=== PATIENT | male | born 1980 | race Caucasian/White ===

== ENCOUNTER → 2021-05-21 08:02 | Outpatient (CLI) | payer OTHER, SELFPAY ==
--- NOTE | 2021-05-21 08:23 | DI.CT.S_ITS ---
PROCEDURE: CT ABDOMEN PELVIS WO/W CON INDICATIONS: Gross hematuria TECHNIQUE: Optional 5 mm thick noncontrast images acquired from the diaphragm to the symphysis pubis. After the administration of intravenous contrast, 5 mm thick images acquired from the diaphragm to the symphysis pubis after a 10-minute delay. 2 mm thick coronal and sagittal reformats were then performed of the kidneys and ureters. For radiation dose reduction, the following was used: automated exposure control, adjustment of mA and/or kV according to patient size. COMPARISON: [facility], CT, CT KUB, 10/19/2020, 14:32. FINDINGS: Image quality: Excellent. Lung bases: Lung bases are clear. Heart size is normal. Urinary system: Both kidneys are normal in size, without hydronephrosis or nephrolithiasis on pre-contrast images. No perinephric fat stranding. There is normal bilateral renal enhancement. Renal calyces appear normal in morphology when filled with contrast. Opacified portions of both ureters demonstrate normal caliber. Bladder wall thickness is normal. No calcified bladder stones. Other solid organs: Liver is normal in size and enhancement. There is a vague hyperdensity adjacent to the gallbladder which was present on the previous study, and is in the liver, and not focal gallbladder wall thickening. It likely represents focal fatty sparing in the liver. There is mild diffuse hepatic steatosis. Gallbladder is contracted. There are vague potential stones present in the gallbladder. Biliary system is non x2mapxpr. Pancreas enhances normally. Spleen is normal in size and enhancement. No adrenal nodules. Peritoneum and bowel: Bowel loops demonstrate normal wall thickness and caliber. No free fluid or air. Nodes and vessels: No retroperitoneal or mesenteric adenopathy by size criteria. Aorta and inferior vena cava are normal in size. Abdominal wall: No ventral hernias. Pelvis: No pathologic free pelvic fluid. No inguinal hernias or adenopathy. Bones: No suspicious bony lesions. No vertebral body compression fractures. IMPRESSION: 1. No renal stone, hydronephrosis, ureteral stone, or findings suspicious for malignancy. 2. Mild diffuse hepatic steatosis. 3. Probable cholelithiasis. Dictated by: Pollo Brunson M.D. on 05/21/2021 at 8:48 Approved by: Pollo Brunson M.D. on 05/21/2021 at 8:55
== END ==
PROVIDERS: PCP Family Medicine; Referring Provider Urology; Visit Provider Urology
DX: R31.0 Gross hematuria (principal); N20.0 Calculus of kidney; R10.9 Unspecified abdominal pain; K76.0 Fatty (change of) liver, not elsewhere classified
CPT/HCPCS: 74178; Q9967

== ENCOUNTER → 2021-06-10 12:20 | Outpatient (CLI) | payer OTHER, SELFPAY ==
--- NOTE | 2021-06-10 12:21 | DI.US.S_ITS ---
PROCEDURE: US ABDOMEN LIMITED INDICATIONS: RUQ/RIGHT FLANK PAIN TECHNIQUE: Real-time scanning was performed of the abdominal and retroperitoneal organs, with image documentation. COMPARISON: [facility], CT, CT KUB, 10/19/2020, 14:32. FINDINGS: Liver: Increased echogenicity, compatible with hepatic steatosis. Hypoechoic area adjacent to the gallbladder fossa, measuring up to 1.4 cm, which may reflect focal fatty sparing. Gallbladder: No gallbladder wall thickening, pericholecystic fluid, or sonographic Aguirre sign. 2-3 polyps are seen, measuring up to 1.2 cm. Biliary ducts: Intrahepatic bile ducts are non-dilated. Extrahepatic bile duct caliber measures 7.2 mm. Normal is 6-7 mm or less in diameter, or 10 mm or less post-cholecystectomy. Pancreas: Obscured by bowel gas. Right kidney: Normal in size and echotexture. Right kidney measures 13.1 cm long. No hydronephrosis or solid mass. Nephrolithiasis, measuring up to 8.1 mm. Miscellaneous: No free abdominal fluid. IMPRESSION: 1. Gallbladder polyps measuring up to 1.2 cm. Consider surgical consultation. Dictated by: Rodolfo Zee M.D. on 06/10/2021 at 13:14 Approved by: Rodolfo Zee M.D. on 06/10/2021 at 13:19
== END ==
PROVIDERS: PCP Family Medicine; Referring Provider Surgery; Visit Provider Surgery
DX: K82.4 Cholesterolosis of gallbladder; R10.11 Right upper quadrant pain
CPT/HCPCS: 76705

== ENCOUNTER 2021-06-15 08:07 | Emergency (ER) | payer OTHER, SELFPAY ==
[2021-06-15 08:13] VITALS: BP 168/105; PULSE 105; RESP 14; TEMP 36.9; O2SAT 98; BMI 26.0
--- NOTE | 2021-06-15 08:25 | ED.GENADULT ---
HPI - General Adult General Chief complaint: Urogenital-Male Stated complaint: Hematuria, flank pain Time Seen by Provider: 06/15/21 08:25 Source: patient Mode of arrival: Ambulatory History of Present Illness HPI narrative: 40-year-old gentleman with a history of known kidney stones with distant history of, passing multiple stones and recent passing of gravel followed by Dr. Alegria urology. For the last 6 months he has had chronic intermittent right flank to right lower quadrant pain. CT scan on May 21 shows bilateral nonobstructing renal stones 2 on the right, 3 on the left, no ureteral stones no hydronephrosis. Probable cholelithiasis. Patient is on Flomax. He manages his pain symptomaticly and typically takes no medications. Approximately 2 weeks ago he noticed some sand like debris in his urine. Last night he began noticing gross hematuria and had a slight increase in his chronic right lower quadrant pain radiating and down through the inguinal canal into the right testicle. This morning his pain is significantly improved. He is post appendectomy. He describes no fever, cough, chills he is not vomiting he is not having diarrhea. He describes no overt dysuria Related Data Home Medications Medication Instructions Recorded Confirmed amlodipine 10 mg tablet 10 mg PO DAILY 05/19/21 06/01/21 aspirin 81 mg tablet,delayed 81 mg PO DAILY 05/19/21 06/01/21 release chlorthalidone 50 mg tablet 50 mg PO DAILY 05/19/21 06/01/21 potassium chloride 20 mEq 20 meq PO DAILY 05/19/21 06/01/21 tablet,extended release pravastatin 20 mg tablet 20 mg PO DAILY 06/01/21 06/01/21 Previous Rx's Medication Instructions Recorded tamsulosin 0.4 mg capsule 0.8 mg PO DAILY #60 cap 05/19/21 Allergies Allergy/AdvReac Type Severity Reaction Status Date / Time Penicillins Allergy Verified 06/15/21 08:18 Review of Systems Review of Systems Narrative: Remainder of complete review of systems is otherwise unremarkable except for that included in the HPI. 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 Able to give a complete and coherent history. Well-nourished well-developed HEENT: Moist mucous membranes, normal sclera with reactive pupils, Neck: No JVD, supple Respiratory: Lungs are clear to auscultation, no wheezing no rales no rhonchi. Full and symmetrical air movement Cardiac: Regular rate and rhythm no murmurs no bruits Abdomen: Soft, mild flank with very mild right lower quadrant tenderness with deep palpation with no rebound or guarding. Skin: Warm and dry, no rashes Neurologic: Grossly neurologically intact with no obvious asymmetries or abnormalities Extremities: No trauma, well perfused Psych: Cooperative, appropriate insight and affect Initial Vital Signs Initial Vital Signs: Vital Signs Temperature 98.5 F 06/15/21 08:13 Pulse Rate 105 H 06/15/21 08:13 Respiratory Rate 14 06/15/21 08:13 Blood Pressure 168/105 H 06/15/21 08:13 Pulse Oximetry 98 06/15/21 08:13 Course Orders Ordered: ED Orders 06/15/21 08:21 Urine Microscopic Stat Vital Signs Vital signs: Vital Signs - 8 hr 06/15/21 08:13 Temperature 98.5 F Pulse Rate 105 H Respiratory Rate 14 Blood Pressure 168/105 H Pulse Oximetry 98 Medical Decision Making Lab Data Labs: Urine Dip Bedside Urine Glucose Negative Bedside Urine Bilirubin - Negative Bedside Urine Ketone - Negative Urine Specific [place] 1.015 Bedside Urine Occult Blood +++ Bedside Urine pH 7.5 Bedside Urine Protein - Negative Bedside Urine Urobilinogen - Negative Bedside Urine Nitrite - Negative Bedside Urine Leukocytes - Negative Esterase Point of care testing: Urine Dip Bedside Urine Glucose Negative Bedside Urine Bilirubin - Negative Bedside Urine Ketone - Negative Urine Specific [place] 1.015 Bedside Urine Occult Blood +++ Bedside Urine pH 7.5 Bedside Urine Protein - Negative Bedside Urine Urobilinogen - Negative Bedside Urine Nitrite - Negative Bedside Urine Leukocytes - Negative Esterase MDM Narrative Medical decision making narrative: 40-year-old gentleman with a history of multiple kidney stones seen by Urology. Hematuria noted today with positive red cells and no other findings on urinalysis today. Bedside ultrasound shows no hydronephrosis and symptoms have significantly abated this morning. Given recent CT scanning, current Flomax prescription, no evidence of a urinary tract infection, no suggestion of bowel obstruction or intra-abdominal abscess at this point I would continue to treat with conservative management and have him follow-up with his urologist. At some point there had been a discussion of surgical referral for consideration of pain related to cholelithiasis. At this point he has absolutely no right upper quadrant tenderness. Possibility of pancreatitis have been entertained and again no left upper quadrant tenderness at all. At this point with no evidence of dissection, hydronephrosis, the hematuria clearing and pain minimal I do not think additional workup is required and patient will be discharged home. Discharge Plan Departure Patient Disposition: Home Clinical Impression: Kidney stones, Gross hematuria Instructions: DI for Kidney Stones Activity Restrictions/Additional Instructions: Thank you for coming in today Your urine shows only blood with no suggestion of any type of infection. Bedside ultrasound does not show dilated ureter or significantly dilated kidney. You do not have your appendix so we do not need to worry about appendicitis. Without a fever a and with symptoms improved this morning I do not think that we need to do any advanced imaging or lab work at this time. Please do continue her Flomax. Ibuprofen may be helpful for pain if you choose to take this. Please follow-up with Dr. Alegria. I wish you the best Prescriptions: No Action pravastatin 20 mg tablet 20 mg PO DAILY 0RF aspirin 81 mg tablet,delayed release (DR/EC) 81 mg PO DAILY 0RF amlodipine 10 mg tablet 10 mg PO DAILY 0RF potassium chloride 20 mEq tablet extended release 20 meq PO DAILY 0RF chlorthalidone 50 mg tablet 50 mg PO DAILY 0RF tamsulosin 0.4 mg capsule 0.8 mg PO DAILY Qty: 60 12RF Referrals: Clifton Truong MD [Primary Care Provider] -
[2021-06-15 08:58] LABS: Amorphous Sediment Urine 1+; Bacteria Urine Moderate (10-30); Culture Indicated Urine Cult Not Indicated; RBC Urine >100/HPF (0-5/HPF); WBC Urine None Seen (0-5/HPF)
== END 2021-06-15 09:14 | disposition home or self-care (01) ==
PROVIDERS: Emergency Provider Emergency Medicine; PCP Family Medicine; Referring Provider Urology
DX: N20.0 Calculus of kidney (principal); R31.9 Hematuria, unspecified
CPT/HCPCS: 81003; 81015; 99281; 99282

== ENCOUNTER → 2021-06-23 08:00 | Outpatient (CLI) | payer OTHER, SELFPAY ==
--- NOTE | 2021-06-23 08:01 | DI.RAD.S_ITS ---
PROCEDURE: XR KUB INDICATIONS: Renal calculi TECHNIQUE: One view of the abdomen acquired. COMPARISON: [facility], CT, CT ABDOMEN PELVIS WO/W CON, 05/21/2021, 8:12. FINDINGS: Surgical changes and devices: None. Bowel: Bowel gas pattern is normal. Soft tissues: Numerous bilateral renal stones are noted ranging in size from 2-7 millimeters. 3 millimeter calcific density projects over the expected course of the proximal right ureter at the level of the right L3 transverse process. Visualized solid organ contours appear normal in size. Bones: No suspicious bony lesions. IMPRESSION: Possible 3 millimeter right ureteral stone. Multiple bilateral renal stones. Dictated by: Yanely Haney MD, PhD on 06/23/2021 at 13:14 Approved by: Yanely Haney MD, PhD on 06/23/2021 at 13:16
== END ==
PROVIDERS: PCP Family Medicine; Referring Provider Urology; Visit Provider Urology
DX: N20.0 Calculus of kidney (principal); K82.4 Cholesterolosis of gallbladder; R10.31 Right lower quadrant pain; M54.6 Pain in thoracic spine
CPT/HCPCS: 74018; 81002; 96372; 99215; J1885

== ENCOUNTER 2021-07-09 12:14 | Day surgery (SDC) | payer OTHER, SELFPAY ==
[2021-07-06 07:50] VITALS: BMI 26.7
[2021-07-09] VITALS (8 sets, daily range): BP systolic 120–151; BP diastolic 70–88; PULSE 59–79; RESP 16–18; TEMP 36.4–37.5; O2SAT 94–100; BMI 26.0
[2021-07-09] MEDS: LACTATED RINGERS 1,000 ML 42 ML IV (12:47)
[2021-07-09] MEDS: CIPROFLOXACIN 400 MG/200 ML PIGGYBACK 200 MG IV (12:49)
--- NOTE | 2021-07-09 13:08 | PM.PREOP ---
Pre-operative Note COVID-19 COVID-19 status: Negative Result date/Date tested (Pos, Neg/Pending): 07/07/21 Criteria for continued procedure: Continuing or worsening of significant or severe pain, Delay expected to result in less-positive ultimate med/surg outcome and Non-surgical alternatives not available or appropriate per current SOC Interval Note History & Physical reviewed/Exam performed by Physician: Yes Changes to H&P: No
--- NOTE | 2021-07-09 13:52 | SUR.OPER ---
Supine on padded EWSL table, head on pillow, arms padded at sides with gel pads and rolled towels placed under bilateral wrists, legs uncrossed, gel pad under bilateral heels. Patient was first in lithotomy position using ESWL bed padded stirrups then to supine position.
--- NOTE | 2021-07-09 14:23 | P.OP_ITS ---
Procedure & Clinicians Procedure: Right extracorporeal shockwave lithotripsy, bilateral ureteral stent placement Same procedure as scheduled: Yes Indications: This is a 40-year-old male who has bilateral urinary calculi. He has suffered from renal colic bilaterally but particularly on the right side. The stone in the right ureter has refused to pass and the patient presents at this time for the above procedure. He has been unable to function at home or at work because of the stones. Surgeon: Mian Alegria Click Yes if Unassisted: Yes Anesthesia Type: General Operative Notes Findings: Patient was found to have the 2 stones on the right 1 in the proximal 3rd of the ureter 1 in the upper pole of the right kidney. He appeared to have 3 stones on the left. The 7 [place]ian multi length stents were left in good position right and left collecting system without a string. The stones appeared to fragment well the ureteral stone was treated with 750 shocks at level 8 and the upper pole right calculus was treated with the remainder of the shocks going to 1000 total shocks. The upper pole stone was treated at level 6. Both stones appeared to fragment well. At cystoscopy the urethra was normal along its length prostate exhibited minimal obstructive character. Ureteral orifices were normal position with clear efflux. The bladder mucosa was normal. There were no papillary lesions or stones within the bladder. Closure Type: not applicable Specimen(s): none sent Prosthetic devices, grafts, tissues, transplants, or devices: Ureteral stents right and left 7 [place]ian multi length no string Procedure in detail: After informed consent was obtained, the patient was identified, and taken to the operating room. The patient was then placed in the supine position on the lithotriptor where anesthesia was induced and maintained. With an adequate level of anesthesia the patient was transitioned to the lithotomy position. The patient was then prepped, draped, prepared for transurethral procedure. After prepping, draping and ensuring an adequate level of anesthesia a 22 Lithuanian cystoscope was passed through the urethra prostate into the bladder where cystoscopy was performed. The right ureteral orifice was identified and a guidewire was passed up and into the collecting system under fluoroscopic visualization. The stent was then passed over the wire in position in the renal pelvis under fluoroscopic visualization, in the bladder under direct vision. With the stent in good position the wire was removed and the stent was left in place. The nylon hardness of the stent was then removed. The scope was reinserted and the left ureteral orifice was identified guidewire was passed up and into the collecting system and the stent passed over the wire position in the renal pelvis under fluoroscopic visualization in the bladder under direct vision. Again the nylon string was removed the stent was left in good position. The patient's bladder was then drained the cystoscope removed and the patient returned to the supine position on Lithotripter. The patient then had the ureteral stone targeted via the fluoroscopic being targeting system and was t reated with shock waves to a total of 750 total shocks. At this point the stone appeared well fragmented. The upper pole renal calculus right side was then targeted and shock waves delivered to reach the total of 1000 total shocks. At this point the shockwave head was rotated out and again fluoroscopy performed the stones appeared to be well fragmented of and in a fashion they were ?dust clouds ?. With that being true the patient was awakened, taken to the postanesthesia care unit having tolerated the procedure well patient to be discharged home to follow-up in my office in approximately 10 days with a KUB. There were no complications. Complications: none Post-operative Condition: stable Disposition: PACU Plan for aftercare: Patient to be discharged to home, to follow up my office in approximately 10 days with a KUB.
[2021-07-09] MEDS: PHENAZOPYRIDINE 100 MG TABLET 200 MG PO (15:11)
[2021-07-09] MEDS: HYDROCODONE/ACET 5/325 TABLET 1 TAB PO (15:11)
--- NOTE | 2021-07-09 15:43 | SUR.PHASEII ---
1535-Pt A&O, denies nausea, taking po fluids without problems, gave Pyridium 200mg and Vicodin po earlier for pain to lower left back. Pt up and ambulating gait steady, to br voiding well without problems, urine strained but no tissue found. 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 Pt states pain tolerable . Dcd in stable condition via [place] to friend at [facility] in private vehicle
== END 2021-07-09 15:35 | disposition home or self-care (01) ==
PROVIDERS: PCP Family Medicine; Referring Provider Urology; Visit Provider Urology
PROC: (CPT 50590; principal; 2021-07-09 13:30)
DX: N20.1 Calculus of ureter (principal); N20.0 Calculus of kidney
CPT/HCPCS: 50590; 52332; J0744; J2250; J2405; J2704; J3010

== ENCOUNTER → 2021-07-23 08:22 | Outpatient (CLI) | payer OTHER, SELFPAY ==
--- NOTE | 2021-07-23 08:24 | DI.RAD.S_ITS ---
PROCEDURE: XR KUB INDICATIONS: Renal calculi TECHNIQUE: One view of the abdomen acquired. COMPARISON: [facility], CR, XR KUB, 06/23/2021, 7:55. FINDINGS: Surgical changes and devices: Bilateral ureteral stents noted. Bowel: Bowel gas pattern is normal. Soft tissues: Stippled bilateral renal calcification again noted, similar prior exam. There are 2 separate calcifications noted at the right ureteropelvic junction projecting between the L2 and L3 spinous processes, new from the prior exam. Bones: No suspicious bony lesions. IMPRESSION: 1. Right proximal ureteral calculi, new from the prior exam, project between the L2 and L3 spinous processes. 2. Bilateral renal stents in place. 3. Bilateral renal calculi Approved by: Boom Byrne M.D. on 07/23/2021 at 15:06
== END ==
PROVIDERS: PCP Family Medicine; Referring Provider Urology; Visit Provider Urology
DX: N20.2 Calculus of kidney with calculus of ureter (principal); K82.4 Cholesterolosis of gallbladder; N39.0 Urinary tract infection, site not specified; R31.0 Gross hematuria; R30.0 Dysuria; R10.31 Right lower quadrant pain; Z96.0 Presence of urogenital implants
CPT/HCPCS: 74018; 81002; 82365; 87086

== ENCOUNTER → 2021-07-23 09:18 | Outpatient (CLI) | payer OTHER, SELFPAY ==
[2021-07-29 16:00] LABS: Hydroxyapatite 100 % (.); Size <1 mm (.)
== END ==
PROVIDERS: PCP Family Medicine; Visit Provider Urology
DX: N20.0 Calculus of kidney (principal); N39.0 Urinary tract infection, site not specified; Z96.0 Presence of urogenital implants
CPT/HCPCS: 82365; 87086

== ENCOUNTER → 2021-08-05 13:55 | Outpatient (CLI) | payer OTHER, SELFPAY ==
--- NOTE | 2021-08-05 13:57 | DI.RAD.S_ITS ---
PROCEDURE: XR KUB INDICATIONS: kidney stones TECHNIQUE: One view of the abdomen acquired. COMPARISON: [facility], CR, XR KUB, 07/23/2021, 8:39. FINDINGS: Surgical changes and devices: Double-J ureteral stents are redemonstrated. Bowel: Bowel gas pattern is normal. Soft tissues: 2 right renal calculi are visualized along the superior aspect of the double-J ureteral stent. These have slightly migrated inferiorly when compared with the prior study dated July 23, 2021 and are now projected over the right L4 transverse process. Left renal calculi are likely present, as before. Bones: No suspicious bony lesions. IMPRESSION: Slight inferior migration of the right ureteral calculi which are now projected over the right L4 transverse process. Dictated by: Deepti Girard M.D. on 08/05/2021 at 15:25 Approved by: Deepti Girard M.D. on 08/05/2021 at 15:26
== END ==
PROVIDERS: PCP Family Medicine; Referring Provider Urology; Visit Provider Urology
DX: N20.0 Calculus of kidney (principal); Z20.822 Contact with and (suspected) exposure to COVID-19
CPT/HCPCS: 74018; 82365; 87635

== ENCOUNTER → 2021-08-05 14:25 | Outpatient (CLI) | payer OTHER, SELFPAY ==
[2021-08-06 11:14] LABS: COVID19 -Nasal RAPID Negative (Negative)
[2021-08-11 16:07] LABS: Ca oxalate monohydr 20 % (.); Hydroxyapatite 80 % (.)
== END ==
PROVIDERS: PCP Family Medicine; Visit Provider Urology
DX: Z20.822 Contact with and (suspected) exposure to COVID-19 (principal); N20.0 Calculus of kidney
CPT/HCPCS: 82365; 87635

== ENCOUNTER 2021-08-06 10:30 | Day surgery (SDC) | payer OTHER, SELFPAY ==
[2021-08-04 11:35] VITALS: BMI 25.7
[2021-08-06 10:57] VITALS: BP 149/89; PULSE 83; RESP 16; TEMP 36.8; O2SAT 98; BMI 25.7
--- NOTE | 2021-08-06 11:33 | PM.PREOP ---
Pre-operative Note COVID-19 COVID-19 status: Negative Result date/Date tested (Pos, Neg/Pending): 08/06/21 Criteria for continued procedure: Continuing or worsening of significant or severe pain and Non-surgical alternatives not available or appropriate per current SOC Interval Note History & Physical reviewed/Exam performed by Physician: Yes Changes to H&P: No
--- NOTE | 2021-08-06 12:24 | SUR.OPER ---
Supine on ESWL bed, head on pillow, arms resting at sides padded at elbows and wrists, legs uncrossed,
[2021-08-06] MEDS: LACTATED RINGERS 500 ML 25 ML IV (12:42)
[2021-08-06] MEDS: LACTATED RINGERS 1,000 ML 42 ML IV (12:45)
[2021-08-06] MEDS: CIPROFLOXACIN 400 MG/200 ML PIGGYBACK 200 MG IV (12:51)
--- NOTE | 2021-08-06 13:21 | PM.OP.1 ---
Procedure & Clinicians Procedure: Left external for shockwave lithotripsy Same procedure as scheduled: Yes Indications: This is a pleasant 40-year-old male who presented with bilateral stones. He previously had undergone right extra for shockwave lithotripsy with bilateral stent placement. He presents today for left extracorporeal shockwave lithotripsy to continue treating his stones. Surgeon: Mian Alegria Click Yes if Unassisted: Yes Anesthesia Type: General Operative Notes Findings: Right ureteral stent is noted to be in good position. He does have a few fragments in the mid 3rd of his ureter which have failed to pass as yet but have been progressing. The left kidney as was noted on CT scan and at fluoroscopy today shows 2 stones. The left stent is in good position. The upper stone was treated with 500 shocks and appeared to fragment completely. The lower stone was treated with 250 shocks and appeared to fragment completely. There were no other abnormalities or observations noted. Closure Type: not applicable Specimen(s): none sent Estimated Blood Loss (mL): 0 Blood products transfused: none Procedure in detail: After informed consent was obtained, the patient was identified and brought to the operating room. Patient had anesthesia induced on the gurney and was maintained. Ensuring an adequate level of anesthesia the patient was transferred to the Lithotripter in the supine position and had the upper pole stone position and with the targeting element of the fluoroscopy. After time out, ensuring an adequate level of anesthesia had with the stone appropriately positioned with the targeting device shockwave delivered. This was done for a total 500 shocks which appeared to fragment the stone completely. The lower pole stone was then centered by the targeting device and shock waves delivered for a total 250 shocks at which time the stone appeared completely fragmented. The shockwave head was pulled out and fluoroscopy performed confirming that the stones appeared to be completely fragmented. At this point the procedure was stopped the patient was awakened, taken to the postanesthesia care unit having tolerated procedure well. The patient is to be discharged home to follow up my office in approximately 10 days with a KUB. Patient will be given a strainer and container to strain his urine and save any fragments that he catches. The patient tolerated procedure well and there were no complications. Complications: none Post-operative Condition: stable Disposition: PACU Plan for aftercare: Discharge to home follow-up my office in 10-14 days with a KUB.
[2021-08-06 13:26] VITALS: BP 102/62; PULSE 65; RESP 12; TEMP 36.6; O2SAT 95
[2021-08-06 13:31] VITALS: BP 102/67; PULSE 63; RESP 12; O2SAT 98
[2021-08-06 13:37] VITALS: BP 102/66; PULSE 62; RESP 11; O2SAT 98
[2021-08-06 13:51] VITALS: BP 104/68; PULSE 62; RESP 16; TEMP 36.3; O2SAT 99
[2021-08-06] MEDS: ACETAMINOPHEN 325 MG TABLET 975 MG PO (13:58)
[2021-08-06] MEDS: GABAPENTIN 300 MG CAPSULE PO (13:58)
--- NOTE | 2021-08-06 14:08 | SUR.PHASEI ---
Slow to wake, otherwise stable PACU stay. Medicated with gabapentin and acetamenophen per Dr. Batres.
[2021-08-06 14:15] VITALS: BP 118/77; PULSE 65; RESP 15; TEMP 36.6; O2SAT 98
--- NOTE | 2021-08-06 14:18 | SUR.PHASEII ---
discharge instructions reviewed with pt and he verbalized understanding.
== END 2021-08-06 14:32 | disposition home or self-care (01) ==
PROVIDERS: PCP Family Medicine; Referring Provider Urology; Visit Provider Urology
PROC: (CPT 50590; principal; 2021-08-06 12:00)
DX: N20.2 Calculus of kidney with calculus of ureter (principal); I10 Essential (primary) hypertension
CPT/HCPCS: 50590; J0744; J1100; J2250; J2405; J2704

== ENCOUNTER → 2021-08-20 08:49 | Outpatient (CLI) | payer OTHER, SELFPAY ==
--- NOTE | 2021-08-20 08:50 | DI.RAD.S_ITS ---
PROCEDURE: XR KUB INDICATIONS: Renal calculi TECHNIQUE: One view of the abdomen acquired. COMPARISON: [facility], , XR KUB, 08/05/2021, 14:03. FINDINGS: Surgical changes and devices: Double-J ureteral stents are redemonstrated. Bowel: Bowel gas pattern is normal. Soft tissues: As before, multiple calcifications are present adjacent to the superior aspect of the right ureteral stent essentially unchanged from the prior study dated August 05, 2021. No calcifications are visualized more distally adjacent to the ureteral stent. Bones: No suspicious bony lesions. IMPRESSION: Persistent right ureterolithiasis. Dictated by: Deepti Girard M.D. on 08/20/2021 at 9:26 Approved by: Deepti Girard M.D. on 08/20/2021 at 9:34
== END ==
PROVIDERS: PCP Family Medicine; Referring Provider Urology; Visit Provider Urology
DX: N20.1 Calculus of ureter (principal); R30.0 Dysuria; R10.9 Unspecified abdominal pain; Z96.0 Presence of urogenital implants
CPT/HCPCS: 74018; 81002; 82365; 87086

== ENCOUNTER → 2021-08-20 11:30 | Outpatient (CLI) | payer OTHER, SELFPAY ==
[2021-08-27 13:49] LABS: Ca oxalate monohydr 10 % (.); Hydroxyapatite 90 % (.); Size 6x3 mm (.)
== END ==
PROVIDERS: PCP Family Medicine; Visit Provider Urology
DX: N20.0 Calculus of kidney (principal); R30.0 Dysuria
CPT/HCPCS: 82365; 87086

== ENCOUNTER 2021-08-26 11:21 | Day surgery (SDC) | payer OTHER, SELFPAY ==
[2021-08-26] VITALS (7 sets, daily range): BP systolic 98–135; BP diastolic 7–87; PULSE 58–741; RESP 11–16; TEMP 36.2–36.8; O2SAT 95–98; BMI 25.7
--- NOTE | 2021-08-26 14:29 | PM.PREOP ---
Pre-operative Note COVID-19 COVID-19 status: Negative Result date/Date tested (Pos, Neg/Pending): 08/24/21 Criteria for continued procedure: Continuing or worsening of significant or severe pain and Delay expected to result in less-positive ultimate med/surg outcome Interval Note History & Physical reviewed/Exam performed by Physician: Yes Changes to H&P: No
--- NOTE | 2021-08-26 14:34 | SUR.OPER ---
Lithotomy on padded OR bed, head on pillow, arms secured on padded arm boards at <90 degrees abduction. Legs secured in padded yellow fins stirrups.
[2021-08-26] MEDS: CIPROFLOXACIN 400 MG/200 ML PIGGYBACK 200 MG IV (14:55)
--- NOTE | 2021-08-26 15:26 | SUR.OPER ---
Verified and Confirmed patient's PCR covid negative on 08/24/2020 via [employer] portal with FINANCIAL SALES REPRESENTATIVEANDERSON Wilson
[2021-08-26] MEDS: LACTATED RINGERS 1,000 ML 100 ML IV (15:44)
--- NOTE | 2021-08-26 16:07 | P.OP_ITS ---
Procedure & Clinicians Procedure: Cystoscopy with left stent removal, right stent removal with right ureteroscopy basket extraction of stone fragments and right stent placement Same procedure as scheduled: Yes Indications: This is a very pleasant gentleman who has had a rather complicated stone history with bilateral stones. His left-sided stones have been treated and her cleared and comes for stent removal. He had right-sided stones treated but there 3 fragments that have refused the past and thus he comes for stent removal right ureteroscopy with basket extraction of stones and right stent replacement. Surgeon: Mian Alegria Click Yes if Unassisted: Yes Anesthesia Type: General Operative Notes Findings: Urethra normal prostatic fossa which shows minimal to moderate obstructive character. The left stent is in normal position with minimal encrustation in his removed in its entirety. The left ureteral orifice appears normal the flux from the stent was normal. There are no mucosal lesions or abnormalities within the bladder. The right ureteral stent also was in normal position and with minimal encrustation. The stones were identified in the upper mid to distal upper 3rd of the ureter. There were 3 in number and they were all basketed out. Ureteroscopy after this revealed no further stones. The 7 Bangladeshi multi length stent was left in the right collecting system with no string. This was due to the fact that there was significant amount of edema and was felt that it would take time for this to resolve. The stent will be removed in my office in approximately 10 days. No other abnormalities were noted. Closure Type: not applicable Specimen(s): other Prosthetic devices, grafts, tissues, transplants, or devices: Three stone fragments Applied: other (7 Bangladeshi by multi length stent right collecting no string) Estimated Blood Loss (mL): 10 Procedure in detail: After informed consent was obtained, the patient was identified, brought to the operating room. Patient was placed in a supine position on the table where anesthesia was induced to maintain. With a adequate level of anesthesia the patient was transitioned to the lithotomy position where he was prepped, draped, prepared in a sterile fashion for transurethral procedure. After prepping draping and ensuring an adequate level of anesthesia a 21 Bangladeshi cystoscope was passed through the urethra prostate into the bladder under direct vision cystoscopy is performed findings were noted grasping forceps were inserted in the left stent was grasped and removed send tired this was confirmed by fluoroscopy. The right stent was then grasped of by its distal end brought to the meatus a guidewire was passed up and through the stent noon under fluoroscopic visualization confirmed to be within the renal pelvis. The stent was then backed out and this was reserved as a safety wire. Cystoscope was once again inserted and a 2nd guidewire passed up into the collecting system. This was the working wire. Cystoscope was backed out ureteral access sheath was passed up and into the ureter under direct fluoroscopic visualization. The ureteral scope was then passed up to the level of the 1st stone which was basket and brought out of. The scope was passed up and a 2nd smaller stone was then placed and the graft basket and then basketed out. The scope was then passed up again and of the 3rd stone grasped and removed. Ureteral access sheath was removed. The cystoscope was reinserted guidewire passed up and into the collecting system the ureteral scope passed over the wire and up and into the renal pelvis. Nephro ureteroscopy was then performed visualizing the ureter along its entire length no stones were noted. The ureter did exhibit some significant edema. Therefore the safety wire was backloaded through the cystoscope which was reinserted stent passed over the wire in a coaxial fashion position renal pelvis under fluoroscopic visualization the bladder under direct vision the nylon harness was removed and the stent left in good position. The bladder was drained, the patient was awakened having tolerated the procedure well patient to follow-up in my office after recovering in the postanesthesia care unit in approximately 10 days for stent removal. There were no complications Complications: none Post-operative Condition: stable Disposition: PACU Plan for aftercare: When fully awake and alert discharged from postanesthesia care unit follow-up my office in approximately 10 days for stent removal.
--- NOTE | 2021-08-26 16:13 | DI.RAD.S_ITS ---
PROCEDURE: XR ABDOMEN 1V INDICATIONS: RIGHT STONE/STENT FIX TECHNIQUE: One view of the abdomen acquired. COMPARISON: None. FINDINGS: Multiple intraoperative fluoroscopic views demonstrate placement of a double-J ureteral stent. IMPRESSION: Intraoperative fluoroscopic views of double-J ureteral stent placement. Dictated by: Deepti Girard M.D. on 08/26/2021 at 16:52 Approved by: Deepti Girard M.D. on 08/26/2021 at 16:53
[2021-08-26] MEDS: ACETAMINOPHEN 325 MG TABLET 650 MG PO (16:38)
[2021-08-26] MEDS: PHENAZOPYRIDINE 100 MG TABLET 200 MG PO (16:38)
[2021-08-26] MEDS: ONDANSETRON 4 MG/2 ML INJ IV (16:39)
== END 2021-08-26 17:09 | disposition home or self-care (01) ==
PROVIDERS: PCP Family Medicine; Referring Provider Urology; Visit Provider Urology
PROC: (CPT 52352; principal; 2021-08-26 13:15)
DX: N20.1 Calculus of ureter (principal); Z96.0 Presence of urogenital implants
CPT/HCPCS: 52352; 74018; 76000; C1771; J0744; J1100; J1885; J2405; J2704; J3010

== ENCOUNTER → 2021-09-06 15:37 | Outpatient (CLI) | payer OTHER, SELFPAY | PROVIDERS: PCP Family Medicine; Visit Provider Urology | DX: N20.2 Calculus of kidney with calculus of ureter (principal); R30.0 Dysuria; Z96.0 Presence of urogenital implants | CPT/HCPCS: 51798; 52310; 81002; 87086 ==

== ENCOUNTER → 2021-09-20 13:35 | Outpatient (CLI) | payer OTHER, SELFPAY ==
[2021-09-20 14:50] LABS: Appearance Urine UA CLEAR; Bilirubin Urine UA NEGATIVE (NEGATIVE); Color Urine UA YELLOW; Glucose Urine UA NEGATIVE (Negative); Ketones Urine UA NEGATIVE (NEGATIVE); Leukocyte Esterase Urine UA NEGATIVE (NEGATIVE); Nitrite Urine UA NEGATIVE (Negative); Occult Blood Urine UA NEGATIVE (Negative); Protein Urine UA NEGATIVE (Negative); Specific Gravity Urine UA <=1.005 (1.000-1.035); Urobilinogen Urine UA 0.2 E.U./dL (0.2)
[2021-09-20 14:55] LABS: Bacteria Urine None Seen; Culture Indicated Urine Cult Not Indicated; RBC Urine None Seen (0-5/HPF); WBC Urine None Seen (0-5/HPF)
[2021-09-20 15:30] LABS: COVID19 -Nasal RAPID Negative (Negative)
== END ==
PROVIDERS: Surgery; PCP Family Medicine; Referring Provider Urology; Visit Provider Urology
DX: Z01.812 Encounter for preprocedural laboratory examination (principal); Z20.822 Contact with and (suspected) exposure to COVID-19; R30.0 Dysuria
CPT/HCPCS: 81001; 87086; 87635; C9803

== ENCOUNTER 2021-09-21 07:47 | Day surgery (SDC) | payer OTHER, SELFPAY ==
[2021-08-24 12:10] VITALS: BMI 25.7
--- NOTE | 2021-09-21 | PATH_ITS ---
[facility] Accession Number: [id number] . 01 Material submitted: . gallbladder - GALLBLADDER . 02 Diagnosis: Gallbladder, Cholecystectomy: Chronic cholecystitis. Negative for dysplasia and neoplasia. No calculi identified. [facility] 09/24/2021 1702 Local . 02 Electronically signed: . Norah Rasheed MD, Pathologist NPI- [id number] . 01 Gross description: . The specimen is received in formalin, labeled gallbladder, and consists of a disrupted gallbladder measuring 6.7 x 3.0 x 3.0 cm, 0.2 cm average wall thickness. The hepatic bed is remarkable for a single transmural disruption (0.2 cm in length). The remaining hepatic bed is inked blue. The cystic duct (0.2 cm in diameter) and serosal surfaces are grossly unremarkable. The specimen is opened to reveal a moderate amount of viscous bile and bile-stained unremarkable mucosa. The specimen is representatively submitted as follows: . A1: Cystic duct margin en face, sales representative groceries sections of fundus, cystic neck and body. ([id number]) /[facility] 09/23/2021 1645 Local . 02 Pathologist provided ICD-10: K81.1 . 02 CPT . 020209 Specimen Comment: A courtesy copy of this report has been sent to [phone] Performed at: 01 [facility] [address] [id number] MD Everardo De La Rosa MD Phone: [phone] Performed at: 02 [facility] [address] [place], [place] [id number] MD Norah Rasheed MD Phone: [phone]
[2021-09-21 08:11] VITALS: BP 140/83; PULSE 87; RESP 16; TEMP 36.6; O2SAT 99
[2021-09-21 08:13] VITALS: BMI 26.1
[2021-09-21] MEDS: LACTATED RINGERS 1,000 ML 42 ML IV (08:34)
--- NOTE | 2021-09-21 09:31 | P.HP_ITS ---
History of Present Illness History of Present Illness Date Patient Seen: 09/21/21 Time Patient Seen: 09:31 Chief complaint: [facility] Narrative: Gen is here for his laparoscopic cholecystectomy. To review, he had an ultrasound few months back that showed gallbladder polyps the largest of which was about 1.5 cm. He has finally had all of his kidney stones treated and removed with combination of lithotripsy and stone extraction. He continues to have right upper quadrant pain on occasion. Patient History Medical History Abdominal pain Bilateral renal stones Bleeding disorder Cholesterolosis of gallbladder Dysuria Gross hematuria Hereditary hemochromatosis High blood pressure Hypokalemia Kidney stones LFT elevation Liver disease Mixed hyperlipidemia Pyuria Retained ureteral stent Right flank pain Surgical History (Updated 08/24/21 @ 12:16 by Regina Ashley RN) History of lithotripsy (07/09/21) History of liver biopsy History of renal stent Hx of lithotripsy (08/06/21) Family & Social History Family History Father BPH (benign prostatic hyperplasia) Hypertension Mother Migraines Hyperlipidemia Cancer Social History: household members spouse Tobacco & Substance use: Smoking Status Never smoker alcohol intake current alcohol intake frequency a few times a month Substance Use Type does not use Meds Home Medications and Allergies Home Medications Medication Instructions Recorded Confirmed Type amlodipine 10 mg tablet 10 mg PO DAILY 05/19/21 09/21/21 History pravastatin 20 mg tablet 20 mg PO DAILY 06/01/21 09/21/21 History tamsulosin 0.4 mg capsule 0.8 mg PO DAILY #180 cap 06/22/21 09/21/21 Rx aspirin 81 mg tablet,delayed 81 mg DAILY 09/21/21 09/21/21 History release ezetimibe 10 mg tablet 10 mg PO DAILY 09/21/21 09/21/21 History Allergies Allergy/AdvReac Type Severity Reaction Status Date / Time Penicillins Allergy Severe Anaphylaxis Verified 09/21/21 08:09 Exam Vital Signs (past 8 hours): - 09/21/21 08:11 Temperature 97.8 F Pulse Rate 87 Respiratory Rate 16 Blood Pressure 140/83 Pulse Oximetry 99 Oxygen Delivery Method Room Air Const General: healthy appearing Resp Effort & Inspection: normal respiratory effort GI Palpation: soft Assessment & Plan Assessment and plan (1) Gallbladder polyp: Status: Acute Plan We reviewed the findings of gallbladder polyps which could actually be represent a noncalcified gallstone. In any case we should remove his gallbladder as he is symptomatic and if it is a polyp it is larger than 1 cm. He understands the risks and benefits and would like to proceed. COVID-19 COVID-19 status: Negative Result date/Date tested (Pos, Neg/Pending): 09/20/21 Time Spent With Patient Critical Care time: I spent a total of [] minutes of critical care time on this patient's care today; this time is exclusive of procedural time.
[2021-09-21] MEDS: CLINDAMYCIN 900 MG/50 ML PIGGYBACK 50 MG IV (10:00)
--- NOTE | 2021-09-21 10:35 | SUR.OPER ---
Supine on padded OR bed, head on pillow, safety belt at thigh, left arm padded and tucked at side. Right arm secured on padded arm board <90 degrees abduction. Legs uncrossed. Padded footboard in place.
[2021-09-21] MEDS: LIDOCAINE 1% W/EPI 20 ML INJ (11:04)
[2021-09-21] MEDS: BUPIVACAINE 0.5% (PF) VIAL 30 ML INJ (11:08)
--- NOTE | 2021-09-21 11:20 | PM.OP.1 ---
Operative Date/Time/Diagnoses Date of procedure: 09/21/21 Time of procedure: 11:21 Pre-op diagnosis: Gallbladder polyps Post-op diagnosis: same Procedure & Clinicians Same procedure as scheduled: Yes Surgeon: Matthias Aldrich Operative Notes Procedure in detail: The patient was given preoperative antibiotic. The patient was brought to the operating room, placed on the table in the supine position. General endotracheal anesthesia was induced. The abdomen was prepped and draped. A time-out was performed. We made a 1 cm infraumbilical incision. We dissected down to the base of the umbilical stalk using cautery. We grasped the umbilical stalk with a Shira clamp to elevate the abdominal wall. We scored the fascia in the midline with cautery 1 cm. We pierced the peritoneum with a Peon clamp. The Lara port was placed and the abdomen was insufflated to 15 mmHg. A 5 mm 30 degree laparoscopic was inserted. There was no evidence of any injury from the entry. Next, we placed 5 mm ports in the subxiphoid position and right upper quadrant at the midclavicular line and anterior axillary line. Patient was then positioned in reverse Trendelenburg and the table was tilted to the left. The gallbladder was grasped at the dome and retracted cephalad. We then dissected the cystic structures with a combination of hook cautery and blunt dissection. We obtained a critical view. We placed clips on the cystic duct and artery and divided the cystic duct and artery sharply between the clips. The gallbladder was then dissected off the liver and placed in a specimen retrieval bag. We irrigated the right upper quadrant and all the aspirate returned clear. We then removed the 5 mm ports under direct vision we removed the Lara port. We then injected some local into the fascia and closed the fascia with 2 interrupted 0 Vicryl sutures. The skin incisions were closed with 4 Monocryl and Steri-Strips were applied. Band-Aids were applied over the Steri-Strips. EBL: 10 mL Specimen: Gallbladder Post-operative Condition: stable Disposition: PACU
[2021-09-21 11:25] VITALS: BP 102/62; PULSE 62; RESP 15; TEMP 36.1; O2SAT 98
[2021-09-21 11:27] VITALS: BP 100/58; PULSE 79; RESP 15; TEMP 36.2; O2SAT 97
[2021-09-21 11:32] VITALS: BP 99/61; PULSE 59; RESP 13; O2SAT 97
[2021-09-21 11:37] VITALS: BP 104/61; PULSE 61; RESP 13; O2SAT 98
[2021-09-21 12:00] VITALS: BP 114/67; PULSE 83; RESP 16; TEMP 36.3; O2SAT 95
== END 2021-09-21 12:30 | disposition home or self-care (01) ==
PROVIDERS: PCP Family Medicine; Referring Provider Surgery; Visit Provider Surgery
PROC: 0FT44ZZ Resection of Gallbladder, Percutaneous Endoscopic Approach (ICD-10-PCS; CPT 47562; principal; 2021-09-21 09:15)
DX: K81.1 Chronic cholecystitis (principal); E78.5 Hyperlipidemia, unspecified; I10 Essential (primary) hypertension
CPT/HCPCS: 47562; J1100; J1885; J2405; J2704; J3010

== ENCOUNTER → 2021-10-20 12:55 | Outpatient (CLI) | payer OTHER, SELFPAY ==
[2021-10-20 14:26] LABS: COVID19 -Nasal RAPID Negative (Negative)
== END ==
PROVIDERS: PCP Family Medicine; Visit Provider Surgery
DX: Z20.822 Contact with and (suspected) exposure to COVID-19 (principal); Z01.812 Encounter for preprocedural laboratory examination
CPT/HCPCS: 87635; C9803

== ENCOUNTER 2021-10-21 07:14 | Day surgery (SDC) | payer OTHER, SELFPAY ==
--- NOTE | 2021-10-21 | PATH_ITS ---
[facility] Accession Number: [id number] . 01 Material submitted: . PART A: duodenum - DUODNEUM PART B: duodenum bulb - DUODENAL BULB PART C: stomach - ANTRUM PART D: stomach - STOMACH BODY PART E: esophagus, E-G Junction - GE JUNCTION PART F: ileum - TERMINAL ILEUM PART G: colon - TRANSVERSE COLON PART H: sigmoid colon - SIGMOID . 02 Diagnosis: A. Duodenum: Duodenal mucosa with mild active inflammation, nonspecific. Negative for granuloma, regions of dysplasia, or malignancy. . B. Duodenal Bulb: Duodenal mucosa with no diagnostic abnormality. Negative for active inflammation, features of sprue, dysplasia, or malignancy. . C. Antrum: Portions of gastric antral and body-type mucosa with mild chronic inflammation. Negative for Helicobacter organisms by immunohistochemistry. Negative for intestinal metaplasia. Negative for dysplasia or malignancy. . D. Stomach, Body: Portions of gastric antral and body-type mucosa with mild chronic inflammation. Negative for Helicobacter organisms by immunohistochemistry. Negative for intestinal metaplasia. Negative for dysplasia or malignancy. . E. Gastroesophageal Junction: Proximal gastric mucosa with mild chronic inflammation. Negative for intestinal metaplasia. Negative for dysplasia or malignancy. No squamous mucosa identified for evaluation. . F. Terminal Ileum: Small bowel mucosa with no diagnostic abnormality. Negative for active inflammation, dysplasia, and malignancy. . G. Transverse Colon: Minimal crypt architectural distortion. No significant neutrophiic activity identified. Negative for dysplasia or malignancy. . H. Sigmoid: Minimal crypt architectural distortion. No significant neutrophiic activity identified. Negative for dysplasia or malignancy. [facility] 10/27/2021 1623 Local . 02 Electronically signed: . Morena Reeves MD, Pathologist NPI- [id number] . 01 Gross description: . Part A: DUODNEUM: Received in formalin are 2 fragment(s) of raphael, soft tissue measuring 0.3 x 0.2 x 0.1 cm to 0.3 x 0.1 x 0.1 cm submitted entirely in 1 cassette(s) Part B: DUODENAL BULB: Received in formalin is 1 fragment(s) of raphael, soft tissue measuring 0.2 x 0.1 x 0.1 cm submitted entirely in 1 cassette(s) Part C: ANTRUM: Received in formalin are 4 fragment(s) of raphael, soft tissue measuring 0.3 x 0.2 x 0.2 cm to 0.2 x 0.2 x 0.1 cm submitted entirely in 1 cassette(s) Part D: STOMACH BODY: Received in formalin are 3 fragment(s) of raphael, soft tissue measuring 0.3 x 0.2 x 0.2 cm to 0.3 x 0.2 x 0.2 cm submitted entirely in 1 cassette(s) Part E: GE JUNCTION: Received in formalin are 3 fragment(s) of raphael, soft tissue measuring 0.3 x 0.3 x 0.2 cm to 0.3 x 0.3 x 0.1 cm submitted entirely in 1 cassette(s) Part F: TERMINAL ILEUM: Received in formalin is 1 fragment(s) of raphael, soft tissue measuring 0.5 x 0.3 x 0.2 cm submitted entirely in 1 cassette(s) Part G: TRANSVERSE COLON: Received in formalin is 1 fragment(s) of raphael, soft tissue measuring 0.5 x 0.2 x 0.2 cm submitted entirely in 1 cassette(s) Part H: SIGMOID: Received in formalin are 3 fragment(s) of raphael, soft tissue measuring 0.8 x 0.1 x 0.1 cm to 0.3 x 0.2 x 0.1 cm submitted entirely in 1 cassette(s) /CPE 10/22/2021 0754 Local . 02 Microscopic: . C. An immunohistochemical stain is performed to evaluate for Helicobacter organisms and is negative. The control stain shows appropriate reactivity. . D. An immunohistochemical stain is performed to evaluate for Helicobacter organisms and is negative. The control stain shows appropriate reactivity. . . * This test was developed and its performance characteristics determined by [employer]. It has not been cleared or approved by the U.S. Food and Drug Administration. The FDA has determined that such clearance or approval is not necessary. This test is used for clinical purposes. It should not be regarded as investigational or for research. . 02 Pathologist provided ICD-10: R10.9 . 02 CPT . 217088, 138523, 294460, 226531, 623547, 052052, 218692, 953100, O68507 Specimen Comment: A courtesy copy of this report has been sent to [phone] Performed at: [address] [facility] [address] [address], [place], [place] [id number] MD Everardo De La Rosa MD Phone: [phone] Performed at: 02 [facility] [place] [address] [place] [id number] MD Norah Rasheed MD Phone: [phone]
[2021-10-21 07:29] VITALS: BMI 25.9
[2021-10-21 07:35] VITALS: BP 130/84; PULSE 68; RESP 12; TEMP 36.9; O2SAT 99
[2021-10-21] MEDS: LACTATED RINGERS 1,000 ML 42 ML IV ×2 (07:47→09:45)
--- NOTE | 2021-10-21 08:37 | P.HP_ITS ---
History of Present Illness History of Present Illness Date Patient Seen: 10/21/21 Time Patient Seen: 08:37 Chief complaint: [facility] Narrative: Hugo is here for his upper and lower endoscopy. He still complains of abdominal pain. We discussed the addendum to his cholecystectomy pathology report which suggests that there was some adenomyomatosis near the infundibulum of the gallbladder which may have appeared to be a polyp. We also discussed the fact that he has not had any labs performed recently and used to have routine labs because of his hemochromatosis. Patient History Medical History Abdominal pain Bilateral renal stones Bleeding disorder Cholesterolosis of gallbladder Dysuria Hereditary hemochromatosis High blood pressure History of kidney stones Hypokalemia LFT elevation Liver disease Low back pain radiating down leg Mixed hyperlipidemia Pyuria Surgical History History of lithotripsy (07/09/21) History of liver biopsy History of renal stent Hx of lithotripsy (08/06/21) Family & Social History Family History Father BPH (benign prostatic hyperplasia) Hypertension Mother Migraines Hyperlipidemia Cancer Social History: household members spouse Tobacco & Substance use: Smoking Status Never smoker alcohol intake current alcohol intake frequency a few times a month Substance Use Type does not use Meds Home Medications and Allergies Home Medications Medication Instructions Recorded Confirmed Type amlodipine 10 mg tablet 10 mg PO DAILY 05/19/21 10/21/21 History pravastatin 20 mg tablet 20 mg PO DAILY 06/01/21 10/06/21 History tamsulosin 0.4 mg capsule 0.8 mg PO DAILY #180 cap 06/22/21 10/06/21 Rx aspirin 81 mg tablet,delayed 81 mg DAILY 09/21/21 10/06/21 History release ezetimibe 10 mg tablet 10 mg PO DAILY 09/21/21 10/21/21 History sodium sul 1.479 gram-potas ch See Rx Instructions PO PER PKG DIR 10/14/21 Rx 0.188 gram-magnes sul 0.225 gram #24 tab tablet (Sutab) Allergies Allergy/AdvReac Type Severity Reaction Status Date / Time Penicillins Allergy Severe Anaphylaxis Verified 10/06/21 09:49 Exam Vital Signs (past 8 hours): - 10/21/21 07:35 Temperature 98.4 F Pulse Rate 68 Respiratory Rate 12 Blood Pressure 130/84 Pulse Oximetry 99 Oxygen Delivery Method Room Air Const General: healthy appearing Resp Effort & Inspection: normal respiratory effort GI Palpation: soft Assessment & Plan Assessment and plan (1) Abdominal pain: Qualifiers: Abdominal location: right lower quadrant Qualified Code(s): R10.31 - Right lower quadrant pain Status: Acute Plan We will plan to perform his upper and lower endoscopy today. I will also order labs for him due to hemochromatosis COVID-19 COVID-19 status: Negative Result date/Date tested (Pos, Neg/Pending): 10/20/21 Time Spent With Patient Critical Care time: I spent a total of [] minutes of critical care time on this patient's care today; this time is exclusive of procedural time.
[2021-10-21] MEDS: LIDOCAINE 4% SOLN 50 ML 20 ML TOP (08:43)
[2021-10-21] MEDS: fentaNYL 250 MCG/5 ML INJ IV (08:45)
[2021-10-21] MEDS: MIDAZOLAM 5 MG/5 ML VIAL 11 MG IV (08:45)
--- NOTE | 2021-10-21 09:38 | P.OP.EGD&C_ITS ---
Operative Date/Time/Diagnoses Date of procedure: 10/21/21 Time of procedure: 09:38 Pre-op diagnosis: Hemochromatosis and abdominal pain Post-op diagnosis: same Procedure & Clinicians Study performed: Esophagogastroduodenoscopy and colonoscopy Same procedure as scheduled: Yes Surgeon: Matthias Aldrich Procedure Notes Procedure in detail: Procedure in detail: A timeout was performed. Bite blocked was placed. Patient was positioned in a left lateral decubitus position. Sedation was administered with Versed and fentanyl. Once the patient was sedated the endoscope was inserted through the bite block and passed through the esophagus and stomach and into the duodenum. The duodenum appeared normal. Random biopsies were taken from the 2nd portion of the duodenum. The scope was then withdrawn into the duodenal bulb and random biopsies were taken from the duodenal bulb. Scope was then withdrawn into the stomach and random biopsies were taken of the antrum. No ulcers or lesions were noted. Remainder of the stomach was normal and random biopsies were taken from the body of the stomach. Next, the scope was retroflexed and a small hiatal hernia was noted. There was some prominent mucosa just distal to the Z-line and biopsies were taken with forceps. The scope was straightened and withdrawn into the esophagus and no abnormalities were noted. Findings: Small hiatal hernia and mildly prominent mucosa just distal to the Z- line Next we repositioned the patient for a colonoscopy. A digital rectal exam was performed and no abnormality was palpated. The colonoscope was inserted and advanced to the cecum. The appendiceal orifice was identified and photographed. The terminal ileum was intubated and no abnormalities were noted. Random biopsies were taken of the terminal ileum. The scope was slowly withdrawn over greater than 6 minutes. The prep was not adequate to exclude polyps in the right colon. Random biopsies were taken in the transverse colon and descending colon. There were no abnormalities noted throughout the colon. The scope was retroflexed in the rectum and no abnormalities were noted. Findings: Prominent mucosa just distal to the Z-line of the stomach. Normal colon and terminal ileum EBL: 5 mL Scope withdrawal time: 9 Sedation minutes: 49 Post-procedure Recommendations: Will call with biopsy results Disposition: PACU
[2021-10-21 09:40] VITALS: BP 104/73; PULSE 61; RESP 10; TEMP 37.2; O2SAT 96
[2021-10-21 09:45] VITALS: BP 114/59; PULSE 65; RESP 14; O2SAT 96
--- NOTE | 2021-10-21 09:49 | SUR.PHASEI ---
Per Dr Aldrich, patient is approved to take a taxi to [facility] in [place].
[2021-10-21 09:50] VITALS: BP 126/76; PULSE 74; RESP 11; O2SAT 96
[2021-10-21 09:58] VITALS: BP 113/74; PULSE 59; RESP 19; TEMP 36.7; O2SAT 97
[2021-10-21 10:15] LABS: Add Manual Diff / Slide Review NO; Basophils Absolute Auto 0 /uL (0-100); Basophils Percent Auto 0.5 % (0-2); Eosinophils Absolute Auto 100 /uL (0-450); Eosinophils Percent Auto 1.5 % (2-4); Hemoglobin 14.9 g/dL (13.5-17.5); Lymphocytes Absolute Auto 2400 /uL (1100-4500); Lymphocytes Percent Auto 31.1 % (25-40); Mean Corpuscular HGB Conc 36.4 % (30-36); Mean Corpuscular Hemoglobin 31.5 PG (26-34); Mean Corpuscular Volume 86.4 fL (80-100); Monocytes Absolute Auto 600 /uL (0-900); Monocytes Percent Auto 7.3 % (3-14); Neutrophils Absolute Auto 4600 /uL (1500-7000); Neutrophils Percent Auto 59.6 % (50-75); Platelet Count 238 X10^3/uL (150-400); Red Blood Cell Count 4.74 X10^6/uL (4.5-5.9); White Blood Cell Count 7.7 X10^3/uL (4.5-11.0)
[2021-10-21 10:30] LABS: Alanine Aminotransferase 67 IU/L (<50); Albumin 4.1 g/dL (3.5-5.0); Albumin Globulin Ratio 1.6 (1.0-2.8); Alkaline Phosphatase 47 U/L (38-126); Aspartate Aminotransferase 44 IU/L (17-59); BUN Creatinine Ratio 13.2 (6-22); Bilirubin Total 1.5 mg/dL (0.2-1.3); Blood Urea Nitrogen 12 mg/dL (9-20); Calcium 8.7 mg/dL (8.4-10.2); Carbon Dioxide 35 mmol/L (22-32); Chloride 104 mmol/L (98-107); Estimated Glomerular Filt Rate > 60 mL/min (>60); Globulin 2.5 g/dL (1.7-4.1); Glucose 113 mg/dL (70-100); HEMOLYSIS < 15 (0-50); Sodium 140 mmol/L (137-145); Total Protein 6.6 g/dL (6.3-8.2)
[2021-10-21 10:38] LABS: Potassium 2.4 mmol/L (3.4-5.1)
--- NOTE | 2021-10-21 10:48 | SUR.PHASEII ---
Called received by lab concerning pt's labs. K was noted to be 2.4. MD Aldrich notified. Valdemar instructed creative services writer to call pt and have them take a multivitamin, banana, and drink some gatorade for electrolyte replacement. Pt contacted by creative services writer and verbalized understanding.
== END 2021-10-21 10:12 | disposition home or self-care (01) ==
PROVIDERS: PCP Family Medicine; Referring Provider Surgery; Visit Provider Surgery
PROC: 0DJ08ZZ Inspection of Upper Intestinal Tract, Via Natural or Artificial Opening Endoscopic (ICD-10-PCS; CPT 43235; principal; 2021-10-21 09:00)
PROC: 0DJD8ZZ Inspection of Lower Intestinal Tract, Via Natural or Artificial Opening Endoscopic (ICD-10-PCS; CPT 45378; 2021-10-21 09:00)
DX: R10.9 Unspecified abdominal pain (principal); E83.119 Hemochromatosis, unspecified; K44.9 Diaphragmatic hernia without obstruction or gangrene; K29.80 Duodenitis without bleeding; K29.50 Unspecified chronic gastritis without bleeding
CPT/HCPCS: 45380; 43239; 80053; 85025; 99152; 99153; J2250; J3010

== ENCOUNTER → 2022-06-17 10:21 | Outpatient (CLI) | payer OTHER, SELFPAY ==
--- NOTE | 2022-06-17 | DI.MRI.S_ITS ---
PROCEDURE: MR LUMBAR SPINE WO CON INDICATIONS: Radiculopathy, lumbar region TECHNIQUE: Noncontrast sagittal T1 spin echo and T2 fast echo, sagittal STIR, and T2 fast spin echo through the lumbar spine. In cases with scoliosis, additional coronal T2 fast spin echo may be performed. COMPARISON: [facility], CT, CT ABDOMEN PELVIS WO/W CON, 05/21/2021, 8:12. FINDINGS: Image quality: Diagnostic Alignment and Curvature: There is minimal retrolisthesis seen at the L3-L4 level. Bone Marrow: Marrow is of normal overall signal. No acute vertebral body compression fractures. Spinal Cord: Conus medullaris terminates at the T12-L1 level. Visualized cord demonstrates normal signal and size. Paraspinous Soft Tissues: No paravertebral masses. T12-L1: Normal appearance. L1-L2: Normal appearance. L2-L3: Normal appearance. L3-L4: The disc height and disk signal are well-preserved. Mild generalized disc bulge is seen. There is a superimposed central disc protrusion. Moderate bilateral neural foraminal narrowing can be seen, left worse than right. Mild central canal narrowing is seen. L4-L5: The disc height and disk signal are well-preserved. Moderate disc bulge is seen, with a central disc protrusion. Moderate facet joint hypertrophy is seen. There is moderate to severe bilateral neural foraminal narrowing seen, with an associated a degree of compression seen upon the exiting nerve roots. At least moderate central canal narrowing is seen. L5-S1: Ebbp-kg-gxdbxleb loss of disc height and disc signal can be seen. Mild disc bulge is seen, with a central disc extrusion, with superior migration of the disc material, which is best seen on series 2, image 10. Mild facet joint hypertrophy is seen. There is moderate right-sided and no significant left-sided neural foraminal narrowing. Mild central canal narrowing is seen. IMPRESSION: Lower lumbar spine degenerative changes are seen, including a central disc extrusion at the L5-S1 level. Moderate to severe bilateral neural foraminal narrowing can be seen at the L4-L5 level, with associated compression upon the exiting nerve roots. Dictated by: Yaya Clarke M.D. on 06/17/2022 at 11:22 Approved by: Yaya Clarke M.D. on 06/17/2022 at 11:26
== END ==
PROVIDERS: PCP Family Medicine; Referring Provider Family Medicine; Visit Provider Family Medicine
DX: M47.27 Other spondylosis with radiculopathy, lumbosacral region (principal); M51.17 Intervertebral disc disorders with radiculopathy, lumbosacral region; M48.061 Spinal stenosis, lumbar region without neurogenic claudication; M47.26 Other spondylosis with radiculopathy, lumbar region; R29.898 Other symptoms and signs involving the musculoskeletal system; G89.29 Other chronic pain
CPT/HCPCS: 72148

== ENCOUNTER 2025-03-03 12:41 | Emergency (ER) | payer OTHER, SELFPAY ==
[2025-03-03] VITALS (11 sets, daily range): BP systolic 138–161; BP diastolic 87–95; PULSE 62–91; RESP 14–24; TEMP 37.1; O2SAT 93–97; BMI 27.1
[2025-03-03 13:24] LABS: Add Manual Diff / Slide Review NO; Hematocrit 45.0 % (41-53); Hemoglobin 16.2 g/dL (13.5-17.5); Lymphocytes Absolute Auto 2500 /uL (1100-4500); Mean Corpuscular HGB Conc 36.1 % (30-36); Mean Corpuscular Hemoglobin 30.7 PG (26-34); Mean Corpuscular Volume 85.1 fL (80-100); Platelet Count 249 X10^3/uL (150-400)
[2025-03-03 13:46] LABS: Alanine Aminotransferase 40 IU/L (<50); Albumin 4.8 g/dL (3.5-5.0); Albumin Globulin Ratio 1.5 (1.0-2.8); Alkaline Phosphatase 52 U/L (38-126); Blood Urea Nitrogen 15 mg/dL (9-20); Calcium 10.5 mg/dL (8.4-10.2); Carbon Dioxide 26 mmol/L (22-32); Chloride 104 mmol/L (98-107); Estimated Glomerular Filt Rate > 60 mL/min (>60); Globulin 3.3 g/dL (1.7-4.1); Glucose 116 mg/dL (70-99); HEMOLYSIS 20 (0-50); Lipase 80 U/L (23-300); Potassium 3.6 mmol/L (3.4-5.1); Sodium 140 mmol/L (137-145); Total Protein 8.1 g/dL (6.3-8.2)
[2025-03-03 14:17] LABS: Culture Indicated Urine Cult Not Indicated
[2025-03-03 14:40] LABS: RBC Morphology Normal Morphology
--- NOTE | 2025-03-03 15:04 | ED.GENADULT ---
HPI - General Adult General Chief complaint: Urogenital-Male Stated complaint: kidney issue Time Seen by Provider: 03/03/25 14:59 Source: patient Mode of arrival: Ambulatory History of Present Illness HPI narrative: 44-year-old gentleman with a history of hypertension, hyperlipidemia prior kidney stones with 2 previous episodes of lithotripsy and stent placement most recently was in 2021. Over the last 3 weeks he has been having escalating episodes of renal colic on the left side. He has not appointment scheduled with Urology on March 19. He lives on [address] and was in town today, had another episode comes in for further evaluation. She is currently taking tamsulosin, restarted with a renal colic recurrence. He had a couple tablets of oxycodone that he has used. He did not find that ibuprofen was helpful and has not been taking. He has had 2 episodes where the pain severe enough that it was associated with emesis. No fevers or chills. No dysuria or frequency. No chest pain or dyspnea Related Data Home Medications ?Medication ?Instructions ?Recorded ?Confirmed amlodipine 10 mg tablet 10 mg PO DAILY 05/19/21 10/21/21 pravastatin 20 mg tablet 20 mg PO DAILY 06/01/21 10/06/21 aspirin 81 mg tablet,delayed 81 mg DAILY 09/21/21 10/06/21 release ezetimibe 10 mg tablet 10 mg PO DAILY 09/21/21 10/21/21 Previous Rx's ?Medication ?Instructions ?Recorded tamsulosin 0.4 mg capsule 0.8 mg (2 x 0.4 mg) PO DAILY #180 06/22/21 caps sodium sul 1.479 gram-potas ch See Rx Instructions PO PER PKG DIR 10/14/21 0.188 gram-magnes sul 0.225 gram #24 tabs tablet (Sutab) ondansetron 4 mg disintegrating 4 mg PO Q8H PRN nausea and 03/03/25 tablet vomiting #20 tabs oxycodone-acetaminophen 5 mg-325 1 tab PO Q6H PRN pain #20 tabs 03/03/25 mg tablet Allergies Allergy/AdvReac Type Severity Reaction Status Date / Time Penicillins Allergy Severe Anaphylaxis Verified 03/03/25 12:50 Review of Systems Review of Systems Narrative: Pertinent positive and negative findings as per HPI Patient History Medical History Low back pain radiating down leg History of kidney stones Cholesterolosis of gallbladder Bilateral renal stones Pyuria Hereditary hemochromatosis LFT elevation Mixed hyperlipidemia Bleeding disorder Hypokalemia Dysuria Abdominal pain Liver disease High blood pressure Surgical History Hx of lithotripsy (08/06/21) History of lithotripsy (07/09/21) History of renal stent History of liver biopsy Family History Father BPH (benign prostatic hyperplasia) Hypertension Mother Migraines Hyperlipidemia Cancer Social History marital status: number of children: 2 household members: spouse occupational status: employed 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 Smoking Status: Never smoker alcohol intake: current Smoking Status: Never smoker alcohol intake frequency: a few times a month Exam Initial Vital Signs Initial Vital Signs: Vital Signs Temperature 98.7 F 03/03/25 12:46 Pulse Rate 91 H 03/03/25 12:46 Respiratory Rate 18 03/03/25 12:46 Pulse Oximetry 97 03/03/25 12:46 Oxygen Delivery Method Room Air 03/03/25 12:46 General: Alert appropriate in no acute distress Respiratory: Able to speak in full sentences, no obvious respiratory distress Abdomen: Currently not have any pain, no significant abdominal tenderness, no rebound or guarding no flank pain Skin: No obvious rashes, warm and dry Neurologic: Grossly intact no obvious asymmetries or abnormalities Psych: appropriate insight and affect, cooperative Course Orders Ordered: ED Orders 03/03/25 13:10 Complete Blood Count AUTO DIFF Stat Comprehensive Metabolic Panel Stat Lipase Stat 03/03/25 13:20 Urine Culture Stat Urine Microscopic Stat 03/03/25 15:13 CT kidney ureter bladder (KUB) Stat Ondansetron HCl (Ondansetron 4 Mg/2 Ml Inj) 4 mg IV NOW PRN PRN Reason: Nausea And Vomiting Ondansetron HCl (Ondansetron 4 Mg Odt) 4 mg PO NOW PRN PRN Reason: Nausea And Vomiting Vital Signs Vital signs: Vital Signs - 8 hr 03/03/25 12:46 03/03/25 13:50 03/03/25 13:50 Temperature 98.7 F Pulse Rate 91 H 72 Respiratory Rate 18 Blood Pressure 161/95 H Pulse Oximetry 97 97 Oxygen Delivery Method Room Air 03/03/25 14:00 03/03/25 14:00 03/03/25 14:30 Temperature Pulse Rate 69 Respiratory Rate 14 Blood Pressure 145/87 H 138/90 Pulse Oximetry 96 Oxygen Delivery Method Room Air 03/03/25 14:30 03/03/25 15:00 03/03/25 15:00 Temperature Pulse Rate 71 70 Respiratory Rate 17 14 Blood Pressure 144/88 H Pulse Oximetry 93 95 Oxygen Delivery Method 03/03/25 15:30 03/03/25 15:47 03/03/25 15:47 Temperature Pulse Rate 66 66 Respiratory Rate 21 18 Blood Pressure 160/95 H Pulse Oximetry 96 97 Oxygen Delivery Method 03/03/25 16:00 03/03/25 16:00 03/03/25 16:30 Temperature Pulse Rate 68 Respiratory Rate 19 Blood Pressure 149/94 H 159/94 H Pulse Oximetry 94 Oxygen Delivery Method 03/03/25 16:30 03/03/25 17:00 03/03/25 17:00 Temperature Pulse Rate 65 62 Respiratory Rate 19 20 Blood Pressure 150/88 H Pulse Oximetry 96 96 Oxygen Delivery Method Medical Decision Making Lab Data 03/03/25 13:10 03/03/25 13:10 Labs: Lab Results 03/03/25 03/03/25 Range/Units 13:10 13:20 WBC 10.1 (4.5-11.0) X10^3/uL RBC 5.28 (4.5-5.9) X10^6/uL Hgb 16.2 (13.5-17.5) g/dL Hct 45.0 (41-53) % MCV 85.1 (80-100) fL MCH 30.7 (26-34) PG MCHC 36.1 H (30-36) % RDW 13.2 (11.6-14.8) % Plt Count 249 (150-400) X10^3/uL Neut % (Auto) 64.0 (50-75) % Lymph % (Auto) 24.7 L (25-40) % [place] % (Auto) 9.8 (3-14) % Eos % (Auto) 1.1 L (2-4) % Baso % (Auto) 0.4 (0-2) % Neut # (Auto) 6500 (1636-5019) /uL Lymph # (Auto) 2500 (7230-4597) /uL [place] # (Auto) 1000 H (0-900) /uL Eos # (Auto) 100 (0-450) /uL Baso # (Auto) 0 (0-100) /uL RBC Morphology Normal morphology Sodium 140 (137-145) mmol/L Potassium 3.6 (3.4-5.1) mmol/L Chloride 104 (98-107) mmol/L Carbon Dioxide 26 (22-32) mmol/L BUN 15 (9-20) mg/dL Creatinine 0.96 (0.66-1.25) mg/dL Estimated GFR > 60 (>60) mL/min BUN/Creatinine Ratio 15.6 (6-22) Glucose 116 H (70-99) mg/dL Calcium 10.5 H (8.4-10.2) mg/dL Total Bilirubin 1.5 H (0.2-1.3) mg/dL AST 36 (17-59) IU/L ALT 40 (<50) IU/L Alkaline Phosphatase 52 (38-126) U/L Total Protein 8.1 (6.3-8.2) g/dL Albumin 4.8 (3.5-5.0) g/dL Globulin 3.3 (1.7-4.1) g/dL Albumin/Globulin Ratio 1.5 (1.0-2.8) Lipase 80 (23-300) U/L Urine RBC 1-5/hpf (0-5/HPF) Urine WBC 1-5/hpf (0-5/HPF) Ur Squamous Epith Cells None seen (0-5/HPF) Urine Bacteria None seen (None) Ur Culture Indicated? Cult not indicated Vol Urine Centrifuged 10ml (spun) Urine Dip Bedside Urine Glucose Negative Bedside Urine Bilirubin - Negative Bedside Urine Ketone - Negative Urine Specific [place] 1.010 Bedside Urine Occult Blood +/- Bedside Urine pH 6.0 Bedside Urine Protein - Negative Bedside Urine Urobilinogen - Negative Bedside Urine Nitrite - Negative Bedside Urine Leukocytes - Negative Esterase Point of care testing: Urine Dip Bedside Urine Glucose Negative Bedside Urine Bilirubin - Negative Bedside Urine Ketone - Negative Urine Specific [place] 1.010 Bedside Urine Occult Blood +/- Bedside Urine pH 6.0 Bedside Urine Protein - Negative Bedside Urine Urobilinogen - Negative Bedside Urine Nitrite - Negative Bedside Urine Leukocytes - Negative Esterase Imaging Data CT scan - abdomen/pelvis: Radiologist's Impression: PROCEDURE: CT KIDNEY URETER BLADDER (KUB) INDICATIONS: kidney stones TECHNIQUE: CT of the abdomen and pelvis was obtained without intravenous contrast. Coronal and sagittal reformats were performed. For radiation dose reduction, the following was used: automated exposure control, adjustment of mA and/or kV according to patient size. COMPARISON: [facility], CT, CT ABDOMEN PELVIS WO/W CON, 05/21/2021, 8:12. FINDINGS: Image quality: Diagnostic. Lower Chest: No significant findings. ABDOMEN: Liver: No contour-deforming mass. Gallbladder: Status post cholecystectomy. Biliary ducts: No biliary dilation. Pancreas: No ductal dilation. Spleen: Size is within normal limits. Adrenal Glands: No adrenal nodules. Kidneys and Ureters: Left proximal ureteral 6 mm calculus (9 in 75 Hounsfield units) near the ureteropelvic junction with moderate left hydronephrosis. Additional 4 mm left proximal ureteral calculus is seen 2.5 cm distal to the larger calculus. A 3 mm calculus is seen adjacent and just proximal to the larger calculus on coronal images. Multiple small nonobstructing renal calculi are seen bilaterally, largest of which is at the inferior pole of the left kidney measuring 7 mm. No right hydronephrosis or right ureteral calculus. Stomach and Bowel: Small hiatal hernia. A few diverticula are seen in the colon without signs of acute diverticulitis. Small bowel loops are unremarkable. Peritoneum: No abnormal intraperitoneal fluid. No free air. Ventral Wall: Small fat containing periumbilical hernia. Abdominal Nodes: No retroperitoneal or mesenteric adenopathy by size criteria. Vessels: Aorta and inferior vena cava are normal in size. PELVIS: Pelvic Organs: Borderline prostate size. Bladder: Bladder is underdistended and not well evaluated. No bladder calculus is seen. Pelvic Nodes: No enlarged lymph nodes. Miscellaneous: No inguinal hernias are seen. Bones: No aggressive osseous abnormality. IMPRESSION: 1. Three small left proximal ureteral calculi, the largest of which measures up to 6 mm at the ureteropelvic junction with moderate left hydronephrosis. 2. Multiple additional bilateral nonobstructing renal calculi. 3. Mild colonic diverticulosis. Small hiatal hernia. Approved by: Charly Chan M.D. on 03/03/2025 at 16:33 MDM Narrative Medical decision making narrative: 44-year-old gentleman with a history of prior kidney stones presents with recurrent renal colic on the left side. He does have follow up appointment with Urology on March 19 Blood work including CBC and chemistries so no significant infection, anemia or renal failure CT scan does show multiple stones on the left side with a 6 mm stone near the ureteropelvic junction causing some hydronephrosis. There is no sign of infection or acute kidney injury, no indication for hospitalization or immediate stenting this time. Will have him continue his Flomax, he is given a refill of Percocet discussed use of ibuprofen and will ask him to keep urology appointment. Discharge Plan Departure Patient Disposition: Home Clinical Impression: Kidney stone on left side Instructions: DI for Kidney Stones Activity Restrictions/Additional Instructions: Thank you for coming in today You do have more stones on the left side and there is a 6 mm one almost into the bladder that likely is causing the majority of your pain. The CT scan did not see any stones on the right side Please do continue taking 1 Flomax daily Using 400 mg of ibuprofen (2 qzua-djh-twdevpt pills) and 1 Tylenol every 6 hours can be very helpful in controlling pain. For severe pain you can use 400 mg of ibuprofen and 1 Percocet. Percocet is a narcotic and will cause constipation. Please use stool softeners as needed Copy of this note will go to , please keep your appointment on the with him. You are having pain that is not able to be controlled, fevers, chills or any new symptoms you do need to be seen and re-evaluated. Prescriptions: New ondansetron 4 mg tablet,disintegrating 4 mg PO Q8H PRN (Reason: nausea and vomiting) Qty: 20 0RF oxycodone-acetaminophen 5-325 mg tablet 1 tab PO Q6H PRN (Reason: pain) Qty: 20 0RF No Action tamsulosin 0.4 mg capsule 0.8 mg PO DAILY Qty: 180 3RF Sutab 1.479-0.188- 0.225 gram tablet See Rx Instructions PO PER PKG DIR Qty: 24 0RF Rx Instructions: Take as directed by Physician. pravastatin 20 mg tablet 20 mg PO DAILY aspirin 81 mg tablet,delayed release (DR/EC) 81 mg DAILY Patient Comments: 6 weeks ago ezetimibe 10 mg tablet 10 mg PO DAILY amlodipine 10 mg tablet 10 mg PO DAILY Referrals: Breann Blake MD [Primary Care Provider, Family Practice] Stand Alone Forms: Patient Portal/API
--- NOTE | 2025-03-03 15:13 | DI.CT.S_ITS ---
PROCEDURE: CT KIDNEY URETER BLADDER (KUB) INDICATIONS: kidney stones TECHNIQUE: CT of the abdomen and pelvis was obtained without intravenous contrast. Coronal and sagittal reformats were performed. For radiation dose reduction, the following was used: automated exposure control, adjustment of mA and/or kV according to patient size. COMPARISON: [facility], CT, CT ABDOMEN PELVIS WO/W CON, 05/21/2021, 8:12. FINDINGS: Image quality: Diagnostic. Lower Chest: No significant findings. ABDOMEN: Liver: No contour-deforming mass. Gallbladder: Status post cholecystectomy. Biliary ducts: No biliary dilation. Pancreas: No ductal dilation. Spleen: Size is within normal limits. Adrenal Glands: No adrenal nodules. Kidneys and Ureters: Left proximal ureteral 6 mm calculus (9 in 75 Hounsfield units) near the ureteropelvic junction with moderate left hydronephrosis. Additional 4 mm left proximal ureteral calculus is seen 2.5 cm distal to the larger calculus. A 3 mm calculus is seen adjacent and just proximal to the larger calculus on coronal images. Multiple small nonobstructing renal calculi are seen bilaterally, largest of which is at the inferior pole of the left kidney measuring 7 mm. No right hydronephrosis or right ureteral calculus. Stomach and Bowel: Small hiatal hernia. A few diverticula are seen in the colon without signs of acute diverticulitis. Small bowel loops are unremarkable. Peritoneum: No abnormal intraperitoneal fluid. No free air. Ventral Wall: Small fat containing periumbilical hernia. Abdominal Nodes: No retroperitoneal or mesenteric adenopathy by size criteria. Vessels: Aorta and inferior vena cava are normal in size. PELVIS: Pelvic Organs: Borderline prostate size. Bladder: Bladder is underdistended and not well evaluated. No bladder calculus is seen. Pelvic Nodes: No enlarged lymph nodes. Miscellaneous: No inguinal hernias are seen. Bones: No aggressive osseous abnormality. IMPRESSION: 1. Three small left proximal ureteral calculi, the largest of which measures up to 6 mm at the ureteropelvic junction with moderate left hydronephrosis. 2. Multiple additional bilateral nonobstructing renal calculi. 3. Mild colonic diverticulosis. Small hiatal hernia. Approved by: Charly Chan M.D. on 03/03/2025 at 16:33
== END 2025-03-03 18:04 | disposition home or self-care (01) ==
PROVIDERS: Emergency Medicine; Emergency Provider Emergency Medicine; PCP Family Medicine
DX: N20.0 Calculus of kidney (principal); Z87.442 Personal history of urinary calculi
CPT/HCPCS: 36415; 74176; 80053; 81003; 81015; 83690; 85025; 87086; 99283; 99284

== ENCOUNTER → 2025-03-05 14:54 | Outpatient (CLI) | payer OTHER, SELFPAY | PROVIDERS: PCP Family Medicine; Visit Provider Urology | DX: R39.9 Unspecified symptoms and signs involving the genitourinary system (principal); Z87.442 Personal history of urinary calculi | CPT/HCPCS: 87086 ==

== ENCOUNTER 2025-03-14 06:42 | Day surgery (SDC) | payer OTHER, SELFPAY ==
[2025-03-11 09:58] VITALS: BMI 26.9
[2025-03-14] VITALS (7 sets, daily range): BP systolic 107–149; BP diastolic 67–95; PULSE 69–83; RESP 11–16; TEMP 36.3–36.9; O2SAT 97–99; BMI 26.7
--- NOTE | 2025-03-14 | DI.RAD.S_ITS ---
PROCEDURE: XR ABDOMEN 1V INDICATIONS: OR TECHNIQUE: Intra operative one view film of the abdomen. COMPARISON: None FINDINGS: Intra operative films demonstrating positioning of a left nephroureteral stent. IMPRESSION: Intra operative films demonstrating positioning of a left nephroureteral stent. Dictated by: Queenie Coe M.D. on 03/16/2025 at 22:49 Approved by: Queenie Coe M.D. on 03/16/2025 at 22:51
[2025-03-14] MEDS: LACTATED RINGERS 1,000 ML 21 ML IV ×2 (07:24→09:40)
--- NOTE | 2025-03-14 08:01 | PM.PREOP ---
Pre-operative Note COVID-19 COVID-19 status: Not tested Interval Note History & Physical reviewed/Exam performed by Physician: Yes Changes to H&P: No
[2025-03-14] MEDS: levoFLOXacin 500 MG/100 ML PIGGYBACK 100 MG IV (09:10)
--- NOTE | 2025-03-14 09:29 | SUR.OPER ---
Lithotomy on padded OR bed, head on pillow, arms secured on padded arm boards at <90 degrees abduction. Legs secured in padded yellow fins stirrups.
--- NOTE | 2025-03-14 10:10 | PM.OP.1 ---
Operative Date/Time/Diagnoses Date of procedure: 03/14/25 Time of procedure: 09:00 Pre-op diagnosis: Left ureteral calculi Post-op diagnosis: same Procedure & Clinicians Procedure: Cystoscopy Left retrograde ureteropyelogram Left ureteroscopy, laser lithotripsy Left ureteral stent placement Intraoperative interpretation of fluoroscopic images, total time < 1 hour Same procedure(s) as scheduled: Yes Indications: 44 y/o M w/ extensive h/o nephrolithiasis noted to have 3 moderate sized left proximal ureteroliths with resultant upstream moderate hydroureteronephrosis. Discussed treatment options to include continued medical expulsion therapy vs cystoscopy, ureteroscopy, laser lithotripsy with ureteral stent placement. Discussed risks of the procedure to include but not limited to pain, bleeding, infection, injury to urethra/bladder/ureter, inability to access the ureter requiring discussion with Interventional Radiology regarding a possible ureteral stent placement in an antegrade fashion vs a possible nephroureteral stent and/or percutaneous nephrostomy tube, urinary tract infection, inability to remove all of the stone in one setting, need for emergent open repair of bladder and/or ureter, need for multiple ureteroscopic interventions necessary to render the patient stone free. At this time, he would prefer to move forward with a cystoscopy, left ureteroscopy, laser lithotripsy and left ureteral stent placement. Surgeon: Ishaan Farah Assisted?: No Anesthesia Type: General Operative Notes Findings: Three moderate sized stones within left proximal ureter, moderate sized stone within left lower pole calyx Closure Type: not applicable Specimen(s): other (left kidney stone) Applied: none Estimated Blood Loss (mL): 5 Blood products transfused: none Procedure in detail: Patient was identified in the preoperative holding area and consent confirmed. He was then brought to the operating room where general anesthesia was induced.? He was placed in the low lithotomy position. He was then prepped and draped in the usual sterile fashion. A surgical timeout was conducted and all were in agreement. Access to the bladder was obtained via a 30 degree cystoscope.? Complete cystoscopy was then performed and no concerning bladder masses or lesions were appreciated.? Bilateral ureteral orifices were easily identified and noted to be orthotopic in nature.? The left ureteral orifice was then cannulated using a 0.035 sensor tip ureteral guidewire and a 5Fr ureteral catheter was advanced over the guidewire and into the distal left ureter.? The guidewire was then removed and a retrograde ureteropyelogram was performed which noted a large filling defect in the left proximal ureter, consistent with CT findings of a large stone in this area.? The ureteral guidewire was then readvanced through the ureteral catheter and into the left renal pelvis.? The ureteral catheter was then removed and a semirigid ureteroscope was easily advanced into his left ureter alongside the guidewire and to the level of the stone.? A 200 micron laser fiber was then utilized to perform laser lithotripsy.? All stone fragments >1mm in size were removed via the stone basket and sent for chemical analysis.? The semirigid ureteroscope was then removed and a 12/14Fr ureteral access sheath was advanced over the guidewire and into the left proximal ureter. The inner obturator and guidewire were then removed. The flexible ureteroscope was then advanced through the ureteral access sheath and into the left renal collecting system. Complete pyeloscopy was performed and an additional moderate sized stone was noted in the left lower pole calyx. Laser lithotripsy was then performed in similar fashion. All stone fragments >1mm in size were removed via the stone basket. The ureter was then directly visualized upon removal of the ureteroscope and access sheath and noted to be stone free.? A 7Fr multi-length JJ ureteral stent with string was then advanced over the ureteral guidewire.? Upon removal of the guidewire, a good curl was noted in the left renal pelvis and the bladder using fluoroscopy.? The bladder was then drained.? Anesthesia was reversed, he was extubated in the OR and transferred to the PACU in stable condition for recovery. Complications: none Post-operative Condition: stable Disposition: PACU Plan for aftercare: Discharge home from PACU. Will return to Urology clinic in 3 months for a RBUS and stone analysis review.
== END 2025-03-14 11:06 | disposition home or self-care (01) ==
PROVIDERS: PCP Family Medicine; Referring Provider Urology; Visit Provider Urology
PROC: (CPT 52356; principal; 2025-03-14 08:45)
DX: N20.1 Calculus of ureter (principal)
CPT/HCPCS: 52356; 74018; 74420; 76000; 82365; C2617; J1956; J2405; J2704; J3010; J7120

== ENCOUNTER → 2025-05-16 08:15 | Outpatient (CLI) | payer OTHER, SELFPAY ==
--- NOTE | 2025-05-16 08:16 | DI.US.S_ITS ---
PROCEDURE: US RENAL COMPLETE INDICATIONS: 44 y/o M s/p left ureteroscopy, eval for hydro TECHNIQUE: Real-time scanning was performed of the kidneys and bladder, with image documentation. COMPARISON: None. FINDINGS: Kidneys: Kidneys are normal in size. Right kidney measures 12.1 cm long; left kidney measures 12.4 cm long. Right renal cortical thickness is 1.8 cm; left renal cortical thickness is 1.4 cm. Renal cortical echotexture is normal. Mild left hydronephrosis versus extrarenal pelvis. Nonobstructing right renal stone measuring 9 mm. No suspicious solid mass lesions. Bladder: Urinary bladder is normal in in appearance. On pre-void images, bilateral ureteral jets are noted with color Doppler interrogation. (Of note, ureteral jets may not be detectable in up to 25% of cases due to insufficient differences in specific gravity between ureteral and bladder urine). Miscellaneous: No free pelvic fluid. Incidental note of hepatic steatosis. IMPRESSION: 1. Mild left hydronephrosis versus extrarenal pelvis. 2. Nonobstructing right renal stone measuring 9 mm. No right hydronephrosis. 3. Incidental note of hepatic steatosis. Dictated by: Naeem Andre M.D. on 05/16/2025 at 11:39 Approved by: Naeem Andre M.D. on 05/16/2025 at 11:41
== END ==
PROVIDERS: PCP Family Medicine; Referring Provider Urology; Visit Provider Urology
DX: N20.0 Calculus of kidney (principal); K76.0 Fatty (change of) liver, not elsewhere classified
CPT/HCPCS: 76770

== ENCOUNTER 2025-05-26 14:26 | Emergency (ER) | payer OTHER, SELFPAY ==
[2025-05-26 14:29] VITALS: BP 140/86; PULSE 65; RESP 16; TEMP 36.8; O2SAT 100; BMI 25.7
--- NOTE | 2025-05-26 14:32 | EKG_ITS ---
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
--- NOTE | 2025-05-26 15:06 | EKG_ITS ---
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
--- NOTE | 2025-05-26 15:06 | DI.RAD.S_ITS ---
PROCEDURE: XR CHEST 1V INDICATIONS: chest pain TECHNIQUE: One view of the chest was acquired. COMPARISON: None. FINDINGS: Surgical changes and devices: None. Lungs and pleura: Lungs are clear. No pleural effusions or pneumothorax. Mediastinum: Mediastinal contours appear normal. Heart size is normal. Bones and chest wall: No suspicious bony lesions. Overlying soft tissues appear unremarkable. IMPRESSION: No acute cardiopulmonary abnormality is seen. Dictated by: Naeem Andre M.D. on 05/26/2025 at 15:42 Approved by: Naeem Andre M.D. on 05/26/2025 at 15:42
[2025-05-26 15:16] LABS: Add Manual Diff / Slide Review NO; Hematocrit 46.6 % (41-53); Hemoglobin 16.6 g/dL (13.5-17.5); Lymphocytes Absolute Auto 2700 /uL (1100-4500); Mean Corpuscular HGB Conc 35.6 % (30-36); Mean Corpuscular Hemoglobin 31.2 PG (26-34); Mean Corpuscular Volume 87.7 fL (80-100); Platelet Count 252 X10^3/uL (150-400)
[2025-05-26 15:18] LABS: Alanine Aminotransferase 55 IU/L (<50); Albumin 4.8 g/dL (3.5-5.0); Albumin Globulin Ratio 1.5 (1.0-2.8); Alkaline Phosphatase 62 U/L (38-126); Blood Urea Nitrogen 12 mg/dL (9-20); Calcium 10.3 mg/dL (8.4-10.2); Carbon Dioxide 26 mmol/L (22-32); Chloride 105 mmol/L (98-107); Estimated Glomerular Filt Rate > 60 mL/min (>60); Globulin 3.1 g/dL (1.7-4.1); Glucose 95 mg/dL (70-99); HEMOLYSIS < 15 (0-50); Lipase 149 U/L (23-300); Magnesium 2.0 mg/dL (1.6-2.3); Potassium 3.8 mmol/L (3.4-5.1); Sodium 141 mmol/L (137-145); Total Protein 7.9 g/dL (6.3-8.2)
[2025-05-26 15:30] LABS: NT-proBNP (BNP-Adult 18+) < 20 pg/mL (<125); Troponin I < 0.012 ng/mL (0.01-0.034)
[2025-05-26] MEDS: FAMOTIDINE 20 MG/2 ML VIAL 40 MG IV (17:31)
[2025-05-26] MEDS: ASPIRIN 81 MG CHEW TAB 324 MG PO (17:33)
[2025-05-26] MEDS: MAG HYDROX/ALUMINUM/SIMETH SUS 30 ML, LIDOCAINE VISCOUS 2% 15 ML PO (17:33)
[2025-05-26 17:48] LABS: Creatine Kinase 105 U/L (55-170)
--- NOTE | 2025-05-26 17:49 | ED_ITS ---
HPI - Chest Pain General Chief Complaint: Chest Pain Stated Complaint: CP/SOB (ECG normal) Time Seen by Provider: 05/26/25 14:33 Source: patient and family Mode of arrival: Ambulatory History of Present Illness HPI narrative: 44-year-old male with past medical history hypertension, hyperlipidemia presents to the ED with 4 days of chest pain. Patient states that he has had some intermittent chest pain over the last 2 weeks as well. Patient was given 2 doses of nitro in the clinic which was helpful as well as aspirin. States that his chest pain was better with the nitro, however has come back again now. Denies fever, chills, shortness of breath, lightheadedness, dizziness, syncope. Related Data Home Medications ?Medication ?Instructions ?Recorded ?Confirmed ezetimibe 10 mg tablet 10 mg PO DAILY 09/21/2111/03 pravastatin 20 mg tablet 40 mg PO DAILY 03/05/2511/03 eplerenone 50 mg tablet 50 mg PO BID 03/11/25 tamsulosin 0.4 mg capsule 0.4 mg PO DAILY PRN Kidney s tones 03/11/25 05/16/25 Previous Rx's ?Medication ?Instructions ?Recorded oxycodone-acetaminophen 5 mg-325 1 tab PO Q6H PRN pain #20 tabs 03/03/25 mg tablet oxycodone 5 mg tablet 5 mg PO Q8H PRN pain (scale score 03/14/25 7-10) #7 tabs tamsulosin 0.4 mg capsule 0.4 mg PO BEDTIME #7 caps Allergies Allergy/AdvReac Type Severity Reaction Status Date / Time Penicillins Allergy Severe Anaphylaxis Verified 05/26/25 14:56 Review of Systems Constitutional Constitutional: Denies chills, Denies fatigue, Denies fever(s), Denies frequent falls, Denies lethargy and Denies weakness Eyes Eyes: Denies change in vision, Denies eye discharge, Denies irritation and Denies loss of vision ENT Ears, Nose, Mouth, and Throat: Denies change in voice, Denies dizziness, Denies neck pain, Denies sore throat and Denies throat swelling Cardiovascular Cardiovascular: Reports chest pain, Denies irregular heart rhythm, Denies lightheadedness, Denies palpitations, Denies dyspnea, Denies dyspnea on exertion and Denies orthopnea Respiratory Respiratory: Denies cough, Denies dyspnea, Denies dyspnea on exertion and Denies wheezing Gastrointestinal Gastrointestinal: Denies abdominal pain, Denies change in bowel habits, Denies diarrhea, Denies nausea and Denies vomiting Musculoskeletal Musculoskeletal: Denies neck pain and Denies numbness Integumentary/Breasts Skin/Breast: Denies pruritus, Denies erythema, Denies rash and Denies wounds Neurologic Neurologic: Denies behavioral changes, Denies confusion, Denies dizziness, Denies frequent falls, Denies loss of vision, Denies numbness and Denies weakness Psychiatric Psychiatric: Denies anxiety, Denies behavioral changes, Denies confusion, Denies depression, Denies homicidal ideation and Denies suicidal ideation Endocrine Endocrine: Denies fatigue, Denies flushing and Denies palpitations Hematologic/Lymphatic Hematologic/Lymphatic: Denies easy bruising Allergic/Immunologic Allergic/Immunologic: Denies urticaria, Denies throat swelling and Denies wheezing Patient History Medical History Low back pain radiating down leg History of kidney stones Cholesterolosis of gallbladder Bilateral renal stones Pyuria Hereditary hemochromatosis LFT elevation Mixed hyperlipidemia Bleeding disorder Hypokalemia Dysuria Abdominal pain Liver disease High blood pressure Surgical History Hx of appendectomy Hx of cholecystectomy History of back surgery (2021) Hx of lithotripsy (08/06/21) History of lithotripsy (07/09/21) History of renal stent History of liver biopsy Family History Father BPH (benign prostatic hyperplasia) Hypertension Mother Migraines Hyperlipidemia Cancer Social History marital status: number of children: 2 household members: spouse occupational status: employed 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 alcohol intake: former Smoking Status: Never smoker alcohol intake frequency: a few times a month Exam Narrative Exam Narrative: Const General:?cooperative, healthy appearing and comfortable [facility] Head:?normal to inspection Ears:?hearing grossly normal bilaterally Nose:?external nose normal Face and sinus:?normal facial exam and sinuses nontender Mouth:?oral mucosae normal Throat:?posterior oropharynx normal Eyes General:?appearance normal, both eyes and all related structures Neck Neck:?normal visual inspection and no lymphadenopathy noted Resp Effort & Inspection:?normal respiratory effort Auscultation:?clear to auscultation bilaterally Cardio Rate:?regular rate Rhythm:?regular rhythm Neuro General:?patient alert, patient awake and patient oriented x3 Initial Vital Signs Initial Vital Signs: Vital Signs Temperature 98.2 F 05/26/25 14:29 Pulse Rate 65 05/26/25 14:29 Respiratory Rate 16 05/26/25 14:29 Blood Pressure 140/86 05/26/25 14:29 Pulse Oximetry 100 05/26/25 14:29 Oxygen Delivery Method Room Air 05/26/25 14:29 Course Orders Ordered: ED Orders 05/26/25 14:32 EKG-12 Lead Stat 05/26/25 14:44 Complete Blood Count AUTO DIFF Stat Comprehensive Metabolic Panel Stat Lipase Stat Magnesium Stat NT-proBNP (BNP-Adult 18+) Stat Troponin I Stat 05/26/25 15:06 XR chest 1V Stat EKG-12 Lead Stat 05/26/25 17:29 Troponin & CK Cardiac Panel Stat Famotidine (Famotidine 20 Mg/2 Ml Vial) 40 mg IV NOW SANDEEP Last Admin: 05/26/25 17:31 Dose: 40 mg Documented By: DIANE Discontinued Medications Aspirin (Aspirin 81 Mg Chew Tab) 324 mg PO NOW ONE Stop: 05/26/25 15:07 Last Admin: 05/26/25 17:33 Dose: 324 mg Documented By: DIANE Al Hydrox/Mg Hydrox/Simethicone 30 ml/ Lidocaine HCl 15 ml 0 ml PO NOW ONE Stop: 05/26/25 15:54 Last Admin: 05/26/25 17:33 Dose: 45 ml Documented By: DIANE Vital Signs Vital signs: Vital Signs - 8 hr 05/26/25 14:29 Temperature 98.2 F Pulse Rate 65 Respiratory Rate 16 Blood Pressure 140/86 Pulse Oximetry 100 Oxygen Delivery Method Room Air MDM - Chest Pain Lab Data 05/26/25 14:44 05/26/25 14:44 Labs: Lab Results 05/26/25 05/26/25 Range/Units 14:44 17:29 WBC 10.5 (4.5-11.0) X10^3/uL RBC 5.32 (4.5-5.9) X10^6/uL Hgb 16.6 (13.5-17.5) g/dL Hct 46.6 (41-53) % MCV 87.7 (80-100) fL MCH 31.2 (26-34) PG MCHC 35.6 (30-36) % RDW 13.4 (11.6-14.8) % Plt Count 252 (150-400) X10^3/uL Neut % (Auto) 68.3 (50-75) % Lymph % (Auto) 25.5 (25-40) % [place] % (Auto) 5.6 (3-14) % Eos % (Auto) 0.3 L (2-4) % Baso % (Auto) 0.3 (0-2) % Neut # (Auto) 7100 H (1232-2460) /uL Lymph # (Auto) 2700 (7880-7967) /uL [place] # (Auto) 600 (0-900) /uL Eos # (Auto) 0 (0-450) /uL Baso # (Auto) 0 (0-100) /uL Sodium 141 (137-145) mmol/L Potassium 3.8 (3.4-5.1) mmol/L Chloride 105 (98-107) mmol/L Carbon Dioxide 26 (22-32) mmol/L BUN 12 (9-20) mg/dL Creatinine 0.89 (0.66-1.25) mg/dL Estimated GFR > 60 (>60) mL/min BUN/Creatinine Ratio 13.5 (6-22) Glucose 95 (70-99) mg/dL Calcium 10.3 H (8.4-10.2) mg/dL Magnesium 2.0 (1.6-2.3) mg/dL Total Bilirubin 1.6 H (0.2-1.3) mg/dL AST 37 (17-59) IU/L ALT 55 H (<50) IU/L Alkaline Phosphatase 62 (38-126) U/L Total Creatine Kinase 105 (55-170) U/L Troponin I < 0.012 < 0.012 (0.01-0.034) ng/mL NT-Pro-B Natriuret Pep < 20 (<125) pg/mL Total Protein 7.9 (6.3-8.2) g/dL Albumin 4.8 (3.5-5.0) g/dL Globulin 3.1 (1.7-4.1) g/dL Albumin/Globulin Ratio 1.5 (1.0-2.8) Lipase 149 (23-300) U/L MDM Narrative Medical decision making narrative: 44-year-old male with past medical history hypertension, hyperlipidemia presents to the ED with 4 days of chest pain. ACS workup was obtained. EKG is normal sinus rhythm. No acute ST-T changes. Chest x-ray with no acute cardiopulmonary abnormality. Troponin x2 within normal limits. Repeat EKG unchanged as well. Other labs within normal limits. Patient was given a GI cocktail, Pepcid AC due to suspicion for GERD exacerbation. Discussed findings with patient. Unclear etiology of patient's pain, however patient may continue Pepcid AC. Recommend patient follow-up with PCP and Cardiology as soon as possible for further evaluation. ED return precautions were discussed with patient in detail. Patient verbalized understanding. Medical records reviewed: Yes Discharge Plan Departure Patient Disposition: Home Clinical Impression: Chest pain Qualifiers: Chest pain type: unspecified Qualified Code(s): R07.9 - Chest pain, unspecified Instructions: DI for Chest Pain Activity Restrictions/Additional Instructions: You were evaluated in the emergency department today for chest pain. Your workup was normal. It is unclear why you are experiencing this chest pain. It is possible that the acid reflux is causing your symptoms as well. You may continue taking Pepcid AC twice a day to see if it improves your symptoms. Please follow-up with your PCP and Cardiology as soon as possible for further evaluation. Return to the ED if you have worsening chest pain or shortness of breath. Prescriptions: No Action pravastatin 20 mg tablet 40 mg PO DAILY ezetimibe 10 mg tablet 10 mg PO DAILY oxycodone-acetaminophen 5-325 mg tablet 1 tab PO Q6H PRN (Reason: pain) Qty: 20 0RF eplerenone 50 mg tablet 50 mg PO BID tamsulosin 0.4 mg capsule 0.4 mg PO DAILY PRN (Reason: Kidney stones) oxycodone 5 mg tablet 5 mg PO Q8H PRN (Reason: pain (scale score 7-10)) Qty: 7 0RF tamsulosin 0.4 mg capsule 0.4 mg PO BEDTIME Qty: 7 0RF Referrals: Yaya Mckeon DO [Primary Care Provider, [facility]] Stand Alone Forms: Patient Portal/API
[2025-05-26 18:01] LABS: Troponin I < 0.012 ng/mL (0.01-0.034)
[2025-05-26 19:05] VITALS: BP 170/94; PULSE 86; RESP 16; O2SAT 95
== END 2025-05-26 19:05 | disposition home or self-care (01) ==
PROVIDERS: Emergency Provider Student in an Organized Health Care Education/Training Program; PCP Family Medicine
DX: R07.9 Chest pain, unspecified (principal); I10 Essential (primary) hypertension
CPT/HCPCS: 36415; 71045; 80053; 82550; 83690; 83735; 83880; 84484; 85025; 93005; 96374; 99284